=== PATIENT | male | born 1950 | race Caucasian/White ===

== ENCOUNTER 2016-11-21 11:37 | Inpatient (IN) | payer OTHER ==
[2016-11-21 11:59] VITALS: BMI 19.8
--- NOTE | 2016-11-21 15:25 | HP ---
CIWA Score - CIWA Score Nausea/Vomitin-No Nausea/No Vomiting Muscle Tremors: 3 Anxiety: 4-Mod. Anxious/Guarded Agitation: 4-Moderately Restless Paroxysmal Sweats: 1-Minimal Palms Moist Orientation: 0-Oriented Tacttile Disturbances: 3-Moderate Itch/Numb/Burn Auditory Disturbances: 0-None Visual Disturbances: 0-None Headache: 2-Mild CIWA-Ar Total Score: 17 Admission ROS BHS - HPI Chief Complaint: DETOX TX FOR ALCOHOL DEPENDENCE. Allergies/Adverse Reactions: Allergies Allergy/AdvReac Type Severity Reaction Status Date / Time No Known Allergies Allergy Verified 11/21/16 13:24 History of Present Illness: 65 Y/O MALE WITH A HX OF ALCOHOL,COCAINE AND MARIJUANA DEPENDENCE SEEKING DETOX TX. PT STATES HE WAS REFERRED TO DETOX BY [facility] FOR HARM REDUCTION IN [facility]. PCP: DR VALDIVIA AT [facility] [address] [place] [address]. Exam Limitations: No Limitations - Ebola screening Have you traveled outside of the country in the last 21 days: No Have you had contact with anyone from an Ebola affected area: No Have you been sick,other than usual withdrawal symptoms: No Do you have a fever: No - Review of Systems Constitutional: Chills, Night Sweats, Changes in sleep, Unintentional Wgt. Loss EENT: reports: Cataracts (SX BOTH EYES), Blurred Vision (WEARS GLASSES), Dental Problems (FULL UPPER/LOWER DENTURES), Other (DRY EYES) Cardiac: reports: Lightheadedness GI: reports: Constipated, Poor Fluid Intake, Indigestion : reports: Dysuria, Frequency, Other (HX ENLARGED PROSTATE-NO MED) Musculoskeletal: reports: Back Pain, Joint Pain, Muscle Pain Integumentary: reports: No Symptoms Reported Neuro: reports: Headache, Numbness, Tingling, Tremors, Unsteady Gait, Dizziness Endocrine: reports: No Symptoms Reported Hematology: reports: No Symptoms Reported Psychiatric: reports: Orientated x3, Anxious, Depressed Other Systems: Reviewed and Negative Patient History - Patient Medical History Hx Anemia: No Hx Asthma: No Hx Chronic Obstructive Pulmonary Disease (COPD): No Hx Cardiac Disorders: No Hx Hypertension: No Hx Hypercholesterolemia: Yes (ON MED-ATORVASTATIN 10 MG HS) HX Cerebrovascular Accident: Yes (X1 ONE YR AGO (SILENT STROKE BY EKG PER PT) ) Hx Seizures: No Hx Diabetes: No Hx Gastrointestinal Disorders: No (INDIGESTION) Hx Genitourinary Disorders: No 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) Hx Renal Disease (ESRD): No Hx Thyroid Disease: No Hx Human Immunodeficiency Virus (HIV): Yes (SINCE 1991-ON MEDS) Hx Hepatitis C: No Hx Depression: Yes (NO MEDS) Hx Suicide Attempt: No Hx Schizophrenia: No - Patient Surgical History Past Surgical History: Yes Hx Neurologic Surgery: No Hx Cataract Extraction: Yes (both eyes(2016)) Hx Cardiac Surgery: No Hx Lung Surgery: No Hx Breast Surgery: No Hx Breast Biopsy: No Hx Abdominal Surgery: No Hx Appendectomy: No Hx Cholecystectomy: No Hx Genitourinary Surgery: No Hx Orthopedic Surgery: Yes (lt knee(torn meniscus) Other Surgical History: lymphoma=on pancrease-chemo Anesthesia Reaction: No - PPD History Previous Implant?: Yes Documented Results: Negative w/o proof Implanted On Prior R Admission?: No PPD to be Administered?: Yes - Reproductive History Patient is a Female of Child Bearing Age (11 -55 yrs old): No (MALE) Patient : (N/A) - Smoking Cessation Smoking history: Current every day smoker Have you smoked in the past 12 months: No Aproximately how many cigarettes per day: 20 Hx Chewing Tobacco Use: No Initiated information on smoking cessation: Yes 'Breaking Loose' booklet given: 11/21/16 - Substance & Tx. History Hx Alcohol Use: Yes (BEER/VODKA) Hx Substance Use: Yes (COCAINE/MARIJUANA) Substance Use Type: Alcohol, Cocaine, Marijuana Hx Substance Use Treatment: Yes (LAST TX AT [facility] A YR AGO) - Substances Abused Alcohol Route: Oral Frequency: Daily Amount used: beer(5-16oz cans)Vodka(1 pint) Age of first use: 14 Date of Last Use: 11/21/16 Cocaine Route: Smoking Frequency: 1-3 times last 30 days Amount used: $200-300 Age of first use: 36 Date of Last Use: 11/19/16 Marijuana/Hashish Route: Smoking Frequency: 3-6 times per week Amount used: $10 Age of first use: 14 Date of Last Use: 11/18/16 Family Disease History - Family Disease History Family Disease History: Other: Father () Admission Physical Exam [facility] - Vital Signs Vital Signs: Vital Signs - 24 hr 11/21/16 11:57 Temperature 97 F L Pulse Rate 63 Respiratory 20 Rate Blood Pressure 131/73 - Physical General Appearance: Yes: Moderate Distress, Alcohol on Breath, Thin, Irritable, Anxious HEENTM: Yes: EOMI, Normocephalic, ZAHRA, Pharynx Normal Respiratory: Yes: Chest Non-Tender, Lungs Clear, Normal Breath Sounds, No Respiratory Distress Neck: Yes: No masses,lesions,Nodules, Supple, Trachea in good position Breast: Yes: Breast Exam Deferred Cardiology: Yes: Regular Rhythm, Regular Rate, S1, S2 Abdominal: Yes: Normal Bowel Sounds, Non Tender, Flat, Soft Genitourinary: Yes: Other (N/C) Back: Yes: Within Normal Limits Musculoskeletal: Yes: full range of Motion, Gait Steady Extremities: Yes: Normal Range of Motion, Non-Tender 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, Fully Oriented, Alert Integumentary: Yes: Dry, Warm, Other (VARICOSE VEINS LOWER LEGS) Lymphatic: Yes: Within Normal Limits - Diagnostic (1) Alcohol dependence with uncomplicated withdrawal Current Visit: Yes Status: Acute (2) Cocaine dependence, uncomplicated Current Visit: Yes Status: Acute (3) Cannabis dependence, uncomplicated Current Visit: Yes Status: Acute (4) HIV (human immunodeficiency virus infection) Current Visit: Yes Status: Chronic (5) Hypercholesterolemia Current Visit: Yes Status: Chronic Cleared for Admission [facility] - Detox or Rehab [facility] Level of Care: Medically Managed Detox Regimen/Protocol: Librium [facility] Breath Alcohol Content Breath Alcohol Content: 0.053 Urine Drug Screen - Results Drug Screen Negative: No Urine Drug Screen Results: THC-Marijuana, TERRENCE-Cocaine
[2016-11-21] MEDS ORDERED: IBUPROFEN 400 MG TABLET (FP) PO PRN (15:51)
[2016-11-21] MEDS ORDERED: MENTHOL/PHENOL 1 EACH UD MM PRN (15:51)
[2016-11-21] MEDS ORDERED: MAGNESIUM HYDROX 2400MG/30ML ORAL SUSPENSION 30 ML CUP PO PRN (15:51)
[2016-11-21] MEDS ORDERED: MAG HYDROX/AL HYDROX/SIMETH 30 ML UNIT-DOSE CUP PO PRN (15:51)
[2016-11-21] MEDS ORDERED: MAGNESIUM CITRATE 300 ML BOTTLE PO PRN (15:51)
[2016-11-21] MEDS ORDERED: guaiFENesin/D-METHORPHAN HB 10 ML UNIT-DOSE CUPS PO PRN (15:51)
[2016-11-21] MEDS ORDERED: hydrOXYzine PAMOATE 50 MG CAPSULE (FP) PO PRN (15:51)
[2016-11-21] MEDS ORDERED: chlordiazePOXIDE HCL 25 MG CAPSULE PO PRN (15:51)
[2016-11-21] MEDS ORDERED: ACETAMINOPHEN 325 MG TABLET (FP) PO PRN (15:51)
[2016-11-21] MEDS ORDERED: P-EPHED 60MG/TRIPROLIDI 2.5MG TABLET PO PRN (15:51)
[2016-11-21] MEDS ORDERED: NICOTINE POLACRILEX 4 MG GUM BC PRN (15:51)
[2016-11-21] MEDS ORDERED: LOPERAMIDE HCL 2 MG CAPSULE PO PRN (15:51)
[2016-11-21] MEDS ORDERED: chlordiazePOXIDE HCL 25 MG CAPSULE PO ONE (17:45)
[2016-11-21] MEDS: THIAMINE HCL 100 MG TABLET (FP) PO SCH (22:37)
[2016-11-21] MEDS: ATORVASTATIN CA 10 MG TABLET (FP) PO SCH (22:37)
[2016-11-21] MEDS: chlordiazePOXIDE HCL 25 MG CAPSULE PO SCH (22:37)
[2016-11-21 22:45] LABS: URINE APPEARANCE CLEAR; URINE BILIRUBIN NEGATIVE (NEGATIVE); URINE BLOOD NEGATIVE (NEGATIVE); URINE COLOR LTYELLOW; URINE GLUCOSE (UA) NEGATIVE (NEGATIVE); URINE KETONE NEGATIVE (NEGATIVE); URINE LEUK ESTERASE NEGATIVE (NEGATIVE); URINE NITRITE NEGATIVE (NEGATIVE); URINE PROTEIN NEGATIVE (NEGATIVE); URINE UROBILINOGEN NEGATIVE mg/dL (0.2-1.0)
[2016-11-21] MEDS: NICOTINE 21 MG/24 HOURS TOPICAL PATCH TD SCH (22:51)
[2016-11-22] MEDS: chlordiazePOXIDE HCL 25 MG CAPSULE PO SCH ×4 (05:47→22:11)
[2016-11-22] MEDS: EMTRICITAB/RILPIVIRINE/TENOFOV 1 EACH TABLET PO SCH (08:11)
[2016-11-22] MEDS: PRENATAL VITAMINS W/ FOLIC ACID TABLET (FP) PO SCH (10:15)
[2016-11-22] MEDS: ASPIRIN 81 MG CHEWABLE TABLETS PO SCH (10:15)
[2016-11-22] MEDS: ATORVASTATIN CA 10 MG TABLET (FP) PO SCH (10:15)
[2016-11-22] MEDS: NICOTINE 21 MG/24 HOURS TOPICAL PATCH TD SCH (10:16)
--- NOTE | 2016-11-22 10:19 | PN ---
S CIWA - CIWA Score Nausea/Vomitin-No Nausea/No Vomiting Muscle Tremors: 4-Moderate,w/Arms Extend Anxiety: 4-Mod. Anxious/Guarded Agitation: 4-Moderately Restless Paroxysmal Sweats: 3 Orientation: 0-Oriented Tacttile Disturbances: 0-None Auditory Disturbances: 0-None Visual Disturbances: 0-None Headache: 1-Very Mild CIWA-Ar Total Score: 16 BHS Progress Note (SOAP) Subjective: sweats shakes interrupted sleep agitation body aches Objective: 11/22/16 10:18 Vital Signs Temperature 97.1 F L 11/22/16 06:00 Pulse Rate 63 11/22/16 06:00 Respiratory Rate 18 11/22/16 06:00 Blood Pressure 112/66 11/22/16 06:00 O2 Sat by Pulse Oximetry (%) Laboratory Tests 11/21/16 22:20 Urine Color Ltyellow Urine Appearance Clear Urine pH 6.0 Urine Protein Negative Urine Glucose (UA) Negative Urine Ketones Negative Urine Blood Negative Urine Nitrite Negative Urine Bilirubin Negative Urine Urobilinogen Negative Ur Leukocyte Esterase Negative labs pending awake/alert ambulating no acute distress Assessment: 11/22/16 10:19 withdrawal sx Plan: continue detox increase fluids labs pending
[2016-11-22 12:30] LABS: ALBUMIN 3.8 g/dl (3.4-5.0); ANION GAP 6 (8-16); CALCIUM 9.5 mg/dL (8.5-10.1); CO2 29 mmol/L (21-32); CREATININE 1.2 mg/dL (0.7-1.3); GLUCOSE,RANDOM 100 mg/dL (74-106); SGOT/AST 19 U/L (15-37); SGPT/ALT 21 U/L (12-78)
[2016-11-22 12:32] LABS: ALK PHOS 58 U/L (45-117); BILIRUBIN,TOTAL 0.4 mg/dL (0.2-1.0); TOT PROT 7.9 g/dl (6.4-8.2)
[2016-11-22 12:39] LABS: MCH 30.9 pg (25.7-33.7); MCHC 33.9 g/dl (32.0-35.9); MEAN CELL VOLUME 91.2 fl (80-96); MEAN PLT VOLUME 10.4 fl (7.5-11.1); PLATELET COUNT 146 K/MM3 (134-434); RDW 14.9 % (11.9-15.9); WHITE BLOOD COUNT 6.3 K/mm3 (4.0-10.0)
--- NOTE | 2016-11-22 16:44 | CONSULT ---
[facility] Psychiatric Consult - Data Date of interview: 11/22/16 Admission source: [facility] Identifying data: First admission to [facility] for this 65 y/o male seeking detox treatment on for alcohol,cocaine (crack) and marijuana dependence.Patient is single without children,domiciled,unemployed and supported on SSI/SSD benefits. Substance Abuse History: Discussed with the patient in tis interview : Smoking Cessation. Smoking history: Current every day smoker. Have you smoked in the past 12 months: No. Aproximately how many cigarettes per day: 20. Hx Chewing Tobacco Use: No. Initiated information on smoking cessation: Yes. 'Breaking Loose' booklet given: 11/21/16. - Substance & Tx. History. Hx Alcohol Use: Yes (BEER/VODKA). Hx Substance Use: Yes (COCAINE/MARIJUANA). Substance Use Type: Alcohol, Cocaine, Marijuana. Hx Substance Use Treatment: Yes (LAST TX AT [facility] A YR AGO). - Substances Abused. Alcohol. Route: Oral. Frequency: Daily. Amount used: beer(5-16oz cans)Vodka(1 pint). Age of first use: 14. Date of Last Use: 11/21/16. Cocaine. Route: Smoking. Frequency: 1-3 times last 30 days. Amount used: $200-300. Age of first use: 36. Date of Last Use: 11/19/16. Marijuana/Hashish. Route: Smoking. Frequency: 3-6 times per week. Amount used: $10. Age of first use: 14. Date of Last Use: 08/01 Medical History: Significant for HIV infection since 1991,a history of surgery in 2016 for cataracts (bilateral),hypercholesterolemia,cerebrovascular accident (2016) without residual weakness,chemotherapy for lg cell lymphoma(spleen),and orthosurgery for torn meniscus (left knee) in 1991. Psychiatric History: No reported history of pychiatric hospitalizations.Patient sees a psychiatrist at a mental health clinic in the [place] (cannot recall name of facility).He is diagnosed with Bipolar Disorder or MDD (patient states that he cannot be sure).Mr Castro reports that he has stopped taking his prescribed medications (zoloft,abilify,paxil)." They don't work and they make me manic." Not interested in alternates offered in this session.Patient denies history of suicide attempts. Physical/Sexual Abuse/Trauma History: Patient denies. Additional Comment: Urine Drug Screen Results: THC-Marijuana, TERRENCE-Cocaine.Noted. Mental Status Exam - Mental Status Exam Alert and Oriented to: Time, Place, Person Cognitive Function: Good Patient Appearance: Unkempt, Disheveled Mood: Withdrawn, Hopeful Affect: Appropriate, Normal Range Patient Behavior: Fatigued, Cooperative Speech Pattern: Clear Voice Loudness: Normal Thought Process: Goal Oriented Thought Disorder: Not Present Hallucinations: Denies Suicidal Ideation: Denies Homicidal Ideation: Denies Insight/Judgement: Poor Sleep: Well Appetite: Good Muscle strength/Tone: Normal Gait/Station: Normal Psychiatric Findings - Problem List ([place] 1, 2,3) (1) Alcohol dependence with uncomplicated withdrawal Current Visit: Yes Status: Chronic (2) Cannabis dependence, uncomplicated Current Visit: Yes Status: Chronic (3) Cocaine dependence, uncomplicated Current Visit: Yes Status: Chronic (4) Nicotine dependence Current Visit: Yes Status: Chronic Qualifiers: Nicotine product type: cigarettes Substance use status: uncomplicated Qualified Code(s): F17.210 - Nicotine dependence, cigarettes, uncomplicated (5) Substance induced mood disorder Current Visit: Yes Status: Chronic (6) MDD (major depressive disorder) Current Visit: Yes Status: Chronic Comment: By history. (7) HIV (human immunodeficiency virus infection) Current Visit: Yes Status: Chronic (8) Hypercholesterolemia Current Visit: Yes Status: Chronic - Initial Treatment Plan Initial Treatment Plan: Psychoeducation.Detoxification is under way.No medications (patient refused to get back on antidepressant or mood stabilizers) .Made aware of risks taken by abstaining from psychotropic medications ( suicidal ideation,relapses,rehospitalizations,compromission of syndromic recovery,morbidity and deterioration of life quality).Observation.
[2016-11-22] MEDS: diphenhydrAMINE HCL 50 MG CAPSULE PO PRN (22:10)
[2016-11-22] MEDS: THIAMINE HCL 100 MG TABLET (FP) PO SCH (22:11)
[2016-11-23] MEDS: chlordiazePOXIDE HCL 25 MG CAPSULE PO SCH ×3 (06:01→17:25)
[2016-11-23] MEDS: EMTRICITAB/RILPIVIRINE/TENOFOV 1 EACH TABLET PO SCH (09:25)
--- NOTE | 2016-11-23 09:59 | PN ---
S CIWA - CIWA Score Nausea/Vomitin-No Nausea/No Vomiting Muscle Tremors: 3 Anxiety: 3 Agitation: 3 Paroxysmal Sweats: 3 Orientation: 0-Oriented Tacttile Disturbances: 0-None Auditory Disturbances: 0-None Visual Disturbances: 0-None Headache: 0-None Present CIWA-Ar Total Score: 12 S Progress Note (SOAP) Subjective: body aches sweats interrupted sleep Objective: 11/23/16 09:58 Vital Signs Temperature 96.3 F L 11/23/16 06:29 Pulse Rate 57 L 11/23/16 06:29 Respiratory Rate 16 11/23/16 06:29 Blood Pressure 120/70 11/23/16 06:29 O2 Sat by Pulse Oximetry (%) Laboratory Tests 11/21/16 11/22/16 11/22/16 22:20 06:15 06:15 WBC 6.3 RBC 5.12 Hgb 15.8 Hct 46.7 MCV 91.2 MCH 30.9 MCHC 33.9 RDW 14.9 Plt Count 146 MPV 10.4 Sodium 140 Potassium 4.4 Chloride 105 Carbon Dioxide 29 Anion Gap 6 L BUN 11 Creatinine 1.2 Creat Clearance w eGFR > 60 Random Glucose 100 Calcium 9.5 Total Bilirubin 0.4 AST 19 ALT 21 Alkaline Phosphatase 58 Total Protein 7.9 Albumin 3.8 Urine Color Ltyellow Urine Appearance Clear Urine pH 6.0 Ur Specific [place] 1.010 Urine Protein Negative Urine Glucose (UA) Negative Urine Ketones Negative Urine Blood Negative Urine Nitrite Negative Urine Bilirubin Negative Urine Urobilinogen Negative Ur Leukocyte Esterase Negative awake/alert ambulating no acute distress Assessment: 11/23/16 09:59 withdrawal sx Plan: continue detox increase fluids
[2016-11-23] MEDS: NICOTINE 21 MG/24 HOURS TOPICAL PATCH TD SCH (10:18)
[2016-11-23] MEDS: ASPIRIN 81 MG CHEWABLE TABLETS PO SCH (10:18)
[2016-11-23] MEDS: ATORVASTATIN CA 10 MG TABLET (FP) PO SCH (10:18)
[2016-11-23] MEDS: PRENATAL VITAMINS W/ FOLIC ACID TABLET (FP) PO SCH (10:18)
--- NOTE | 2016-11-23 14:52 | EKG ---
Test Reason : Blood Pressure : / mmHG Vent. Rate : 068 BPM Atrial Rate : 068 BPM P-R Int : 160 ms QRS Dur : 076 ms QT Int : 412 ms P-R-T Axes : 074 029 066 degrees QTc Int : 438 ms NORMAL SINUS RHYTHM NORMAL ECG NO PREVIOUS ECGS AVAILABLE Confirmed by KARLI HERNANDEZ MD ([id number]) on 11/23/2016 2:51:24 PM Referred By: Confirmed By:KARLI HERNANDEZ MD
[2016-11-23] MEDS: chlordiazePOXIDE 5 MG CAPSULE PO SCH (22:18)
[2016-11-23] MEDS: THIAMINE HCL 100 MG TABLET (FP) PO SCH (22:18)
[2016-11-24] MEDS: chlordiazePOXIDE 5 MG CAPSULE PO SCH ×3 (05:26→16:57)
[2016-11-24] MEDS: EMTRICITAB/RILPIVIRINE/TENOFOV 1 EACH TABLET PO SCH (07:59)
--- NOTE | 2016-11-24 09:06 | DS ---
[facility] Detox Discharge Summary Admission Date: 11/21/16 Discharge Date: 11/24/16 - History Present History: Alcohol Dependence, Cannabis Dependence, Cocaine Dependence - Physical Exam Results Vital Signs: Vital Signs Temperature 97.1 F L 11/24/16 06:19 Pulse Rate 69 11/24/16 06:19 Respiratory Rate 18 11/24/16 06:19 Blood Pressure 118/62 11/24/16 06:19 O2 Sat by Pulse Oximetry (%) - Treatment Hospital Course: Detox Protocol Followed, Detoxed Safely, Responded well, Discharged Condition Good, Rehab Referral Accepted - Medication Discharge Medications: Ambulatory Orders Aspirin [ASA -] 81 mg PO DAILY 11/21/16 Atorvastatin Ca [Lipitor] 10 mg PO DAILY 11/21/16 Atorvastatin Ca [Lipitor] 10 mg PO HS 11/21/16 Emtricitab/Rilpivirine/Tenofov [Complera -] 1 each PO DAILY 11/21/16 Hydroxyzine Pamoate [Vistaril -] 50 mg PO DAILY 11/21/16 Hydroxyzine Pamoate [Vistaril -] 100 mg PO HS 11/21/16 - Diagnosis (1) Alcohol dependence with uncomplicated withdrawal Current Visit: Yes Status: Chronic (2) Cannabis dependence, uncomplicated Current Visit: Yes Status: Chronic (3) Cocaine dependence, uncomplicated Current Visit: Yes Status: Chronic (4) Nicotine dependence Current Visit: Yes Status: Chronic Qualifiers: Nicotine product type: cigarettes Substance use status: uncomplicated Qualified Code(s): F17.210 - Nicotine dependence, cigarettes, uncomplicated (5) Substance induced mood disorder Current Visit: Yes Status: Chronic (6) HIV (human immunodeficiency virus infection) Current Visit: Yes Status: Chronic (7) Hypercholesterolemia Current Visit: Yes Status: Chronic (8) MDD (major depressive disorder) Current Visit: Yes Status: Chronic - AMA Did Patient Leave Against Medical Advice: No
[2016-11-24] MEDS: ASPIRIN 81 MG CHEWABLE TABLETS PO SCH (10:18)
[2016-11-24] MEDS: ATORVASTATIN CA 10 MG TABLET (FP) PO SCH (10:18)
[2016-11-24] MEDS: PRENATAL VITAMINS W/ FOLIC ACID TABLET (FP) PO SCH (10:18)
[2016-11-24] MEDS: NICOTINE 21 MG/24 HOURS TOPICAL PATCH TD SCH (10:18)
--- NOTE | 2016-11-24 10:45 | PN ---
BHS Progress Note (SOAP) Subjective: feeling better agitation Objective: 11/24/16 10:45 Vital Signs Temperature 97.2 F L 11/24/16 10:25 Pulse Rate 63 11/24/16 10:25 Respiratory Rate 18 11/24/16 10:25 Blood Pressure 125/66 11/24/16 10:25 O2 Sat by Pulse Oximetry (%) awake/alert ambulating no acute distress Assessment: 11/24/16 10:45 mild withdrawal sx Plan: continue detox d/c in am
[2016-11-24] MEDS: diphenhydrAMINE HCL 50 MG CAPSULE PO PRN (22:23)
[2016-11-24] MEDS: chlordiazePOXIDE HCL 10 MG CAPSULE PO SCH (22:23)
[2016-11-24] MEDS: THIAMINE HCL 100 MG TABLET (FP) PO SCH (22:23)
[2016-11-25] MEDS: chlordiazePOXIDE HCL 10 MG CAPSULE PO SCH (05:16)
[2016-11-25 06:31] VITALS: BP 134/76; PULSE 60; TEMP 97.5
--- NOTE | 2016-11-25 08:29 | DS ---
[facility] Detox Discharge Summary Admission Date: 11/21/16 Discharge Date: 11/25/16 - History Present History: Alcohol Dependence, Cannabis Dependence, Cocaine Dependence - Physical Exam Results Vital Signs: Vital Signs Temperature 97.5 F L 11/25/16 06:31 Pulse Rate 60 11/25/16 06:31 Respiratory Rate 16 11/25/16 06:31 Blood Pressure 134/76 11/25/16 06:31 O2 Sat by Pulse Oximetry (%) - Treatment Hospital Course: Detox Protocol Followed, Detoxed Safely, Responded well, Discharged Condition Good, Rehab Referral Accepted - Medication Discharge Medications: Ambulatory Orders Aspirin [ASA -] 81 mg PO DAILY 11/21/16 Atorvastatin Ca [Lipitor] 10 mg PO DAILY 11/21/16 Atorvastatin Ca [Lipitor] 10 mg PO HS 11/21/16 Emtricitab/Rilpivirine/Tenofov [Complera -] 1 each PO DAILY 11/21/16 Hydroxyzine Pamoate [Vistaril -] 50 mg PO DAILY 11/21/16 Hydroxyzine Pamoate [Vistaril -] 100 mg PO HS 11/21/16 - Diagnosis (1) Alcohol dependence with uncomplicated withdrawal Current Visit: Yes Status: Chronic (2) Cannabis dependence, uncomplicated Current Visit: Yes Status: Chronic (3) Cocaine dependence, uncomplicated Current Visit: Yes Status: Chronic (4) Nicotine dependence Current Visit: Yes Status: Chronic Qualifiers: Nicotine product type: cigarettes Substance use status: uncomplicated Qualified Code(s): F17.210 - Nicotine dependence, cigarettes, uncomplicated (5) Substance induced mood disorder Current Visit: Yes Status: Chronic (6) HIV (human immunodeficiency virus infection) Current Visit: Yes Status: Chronic (7) Hypercholesterolemia Current Visit: Yes Status: Chronic (8) MDD (major depressive disorder) Current Visit: Yes Status: Chronic - AMA Did Patient Leave Against Medical Advice: No
== END 2016-11-25 09:08 | disposition home or self-care (01) | DRG 897 ==
LOC: YASAS 11:37 → Y6N 15:01
PROVIDERS: ADMIT Internal Medicine; ATTEND Internal Medicine
PROC: HZ2ZZZZ Detoxification Services for Substance Abuse Treatment (ICD-10-PCS; principal; 2016-11-21)
DX: F10.230 Alcohol dependence with withdrawal, uncomplicated (principal); F14.20 Cocaine dependence, uncomplicated; F33.9 Major depressive disorder, recurrent, unspecified; F12.20 Cannabis dependence, uncomplicated; F17.210 Nicotine dependence, cigarettes, uncomplicated; F19.24 Other psychoactive substance dependence with psychoactive substance-induced mood disorder; Z21 Asymptomatic human immunodeficiency virus [HIV] infection status; E78.00 Pure hypercholesterolemia, unspecified; Z85.72 Personal history of non-Hodgkin lymphomas; K30 Functional dyspepsia; Z86.73 Personal history of transient ischemic attack (TIA), and cerebral infarction without residual deficits; Z79.82 Long term (current) use of aspirin; Z87.438 Personal history of other diseases of male genital organs; Z92.21 Personal history of antineoplastic chemotherapy; Z98.41 Cataract extraction status, right eye; Z98.42 Cataract extraction status, left eye
CPT/HCPCS: 36415; 80053; 81003; 85027; 86593; 93005; 93010

== ENCOUNTER 2019-05-23 12:31 | Inpatient (IN) | payer OTHER ==
--- NOTE | 2019-05-23 14:16 | HP ---
CIWA Score Nausea/Vomitin-Mild Nausea/No Vomiting Muscle Tremors: 3 Anxiety: 0-No Anxiety, at Ease Agitation: 0-Normal Activity Paroxysmal Sweats: 4-Forehead w/Sweat Beads Orientation: 2-Disoriented Date<2 days Tacttile Disturbances: 0-None Auditory Disturbances: 0-None Visual Disturbances: 3-Moderate Sensitivity Headache: 0-None Present CIWA-Ar Total Score: 13 - Admission Criteria OASAS Guidelines: Admission for Medically Managed Detox: Requires at least one of the followin. CIWA greater than 12 2. Seizures within the past 24 hours 3. Delirium tremens within the past 24 hours 4. Hallucinations within the past 24 hours 5. Acute intervention needed for co occurring medical disorder 6. Acute intervention needed for co occurring psychiatric disorder 7. Severe withdrawal that cannot be handled at a lower level of care (continued vomiting, continued diarrhea, abnormal vital signs) requiring intravenous medication and/or fluids 8. Patient presents the following: CIWA greater than 12 Admission Criteria Met: Admission criteria met Admitting History and Physical - Admission Chief Complaint: Mr. Castro presents to [facility] requesting detox from alcohol and crack. History of Present Illness: Mr. Castro presents to [facility] requesting detox from alcohol and crack. He is a 68 yo gentleman with a PMH of HIV and polysubstance use including alcohol, crack/cocaine and THC. His last detox in [facility] was in November of 2016. PMH: HIV, HL. 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 First drink at the age of 15y. 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, seizure one year ago Crack/cocaine: $50 to 100 per day, 2-5 dime bags per day, last use last night, first use age 36 y THC: 3-4 blunts per day, last use yesterday, first use age 15 y Nicotine: 1ppd, first use age 15y, last smoke this am - Smoking History Smoking history: Current every day smoker Have you smoked in the past 12 months: No Aproximately how many cigarettes per day: 20 - Alcohol/Substance Use Hx Alcohol Use: Yes (BEER/VODKA) Admission [facility] Allergies/Adverse Reactions: Allergies Allergy/AdvReac Type Severity Reaction Status Date / Time No Known Allergies Allergy Verified 11/21/16 13:24 Exam Limitations: No Limitations - Ebola screening Have you traveled outside of the country in the last 21 days: No Have you had contact with anyone from an Ebola affected area: No Have you been sick,other than usual withdrawal symptoms: No Do you have a fever: No - Review of Systems Constitutional: Other (slender, difficulty maintaining weight) EENT: reports: Blurred Vision Respiratory: reports: No Symptoms reported Cardiac: reports: No Symptoms Reported GI: reports: No Symptoms Reported : reports: No Symptoms Reported Musculoskeletal: reports: Back Pain Neuro: reports: No Symptoms reported Endocrine: reports: No Symptoms Reported Hematology: reports: No Symptoms Reported Psychiatric: reports: Depressed Patient History - Patient Medical History Hx Anemia: No Hx Asthma: No Hx Chronic Obstructive Pulmonary Disease (COPD): No Hx Cardiac Disorders: No Hx Hypertension: No Hx Hypercholesterolemia: Yes (ON MED-ATORVASTATIN 10 MG HS) HX Cerebrovascular Accident: Yes (X1 ONE YR AGO (SILENT STROKE BY EKG PER PT) ) Hx Seizures: No Hx Diabetes: No Hx Gastrointestinal Disorders: No (INDIGESTION) Hx Genitourinary Disorders: No 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) Hx Renal Disease (ESRD): No Hx Thyroid Disease: No Hx Human Immunodeficiency Virus (HIV): Yes (SINCE 1991-ON MEDS, noncompliant Bicktarvy) Hx Hepatitis C: No Hx Depression: Yes (NO MEDS) Hx Suicide Attempt: No Hx Schizophrenia: No - Patient Surgical History Past Surgical History: Yes Hx Neurologic Surgery: No Hx Cataract Extraction: Yes (both eyes(2016)) Hx Cardiac Surgery: No Hx Lung Surgery: No Hx Breast Surgery: No Hx Breast Biopsy: No Hx Abdominal Surgery: No Hx Appendectomy: No Hx Cholecystectomy: No Hx Genitourinary Surgery: No Hx Section: No Hx Orthopedic Surgery: Yes (lt knee(torn meniscus) Other Surgical History: lymphoma=on pancrease-chemo Anesthesia Reaction: No - PPD History Date: 11/23/16 - Smoking Cessation Smoking history: Current every day smoker Have you smoked in the past 12 months: No Aproximately how many cigarettes per day: 20 Hx Chewing Tobacco Use: No Initiated information on smoking cessation: Yes 'Breaking Loose' booklet given: 05/23/19 - Substances abused Alcohol Substance route: Oral Frequency: Daily Amount used: 6pk beer Age of first use: 15 Date of last use: 05/23/19 Crack Substance route: Smoking Frequency: Daily Amount used: $20-50 Age of first use: 36 Date of last use: 05/22/19 Admission Physical Exam [facility] - Physical General Appearance: Yes: Within Normal Limits, Thin HEENTM: Yes: Hearing grossly Normal, Normocephalic Respiratory: Yes: Lungs Clear, Normal Breath Sounds Neck: Yes: Within Normal Limits Breast: Yes: Breast Exam Deferred Cardiology: Yes: Regular Rate, S1, S2 Abdominal: Yes: Surgical Scar (mid abdominal remote well healed surgical scar) Back: Yes: Normal Inspection Musculoskeletal: Yes: Within Normal Limits Extremities: Yes: Other (spider veins in both legs) Neurological: Yes: Alert, Normal Response Integumentary: Yes: Within Normal Limits - Diagnostic (1) Alcohol dependence with uncomplicated withdrawal Current Visit: Yes Status: Acute (2) Cocaine dependence, uncomplicated Current Visit: Yes Status: Chronic (3) HIV (human immunodeficiency virus infection) Current Visit: Yes Status: Chronic Cleared for Admission [facility] - Detox or Rehab [facility] Level of Care: Medically Managed Breathalyzer - Breathalyzer Breathalyzer: 0.021 Urine Drug Screen - Test Device Lot number: [id number] Expiration date: 03/16/21 - Control Is test valid?: Yes - Results Drug screen NEGATIVE: No Urine drug screen results: THC-Marijuana, TERRENCE-Cocaine, MTD-Methadone Inpatient Rehab Admission - Rehab Decision to Admit Inpatient rehab admission?: No
[2019-05-23] MEDS ORDERED: MELATONIN 5 MG TABLETS PO PRN (14:21)
[2019-05-23] MEDS ORDERED: MAGNESIUM HYDROX 2400MG/30ML ORAL SUSPENSION 30 ML CUP PO PRN (14:21)
[2019-05-23] MEDS ORDERED: chlordiazePOXIDE HCL 25 MG CAPSULE PO PRN (14:21)
[2019-05-23] MEDS ORDERED: METHOCARBAMOL 500 MG TABLET PO PRN (14:21)
[2019-05-23] MEDS ORDERED: MENTHOL/PHENOL 1 EACH UD MM PRN (14:21)
[2019-05-23] MEDS ORDERED: MAG HYDROX/AL HYDROX/SIMETH 30 ML UNIT-DOSE CUP PO PRN (14:21)
[2019-05-23] MEDS ORDERED: IBUPROFEN 400 MG TABLET (FP) PO PRN (14:21)
[2019-05-23] MEDS ORDERED: ACETAMINOPHEN 325 MG TABLET (FP) PO PRN ×2 (14:21)
[2019-05-23] MEDS ORDERED: hydrOXYzine PAMOATE 25 MG CAPSULE (FP) PO PRN (14:21)
[2019-05-23] MEDS ORDERED: MAGNESIUM CITRATE 300 ML BOTTLE PO PRN (14:21)
[2019-05-23] MEDS ORDERED: BISMUTH SUBSALICYLATE 262 MG/15 ML BTL PO PRN (14:21)
[2019-05-23 14:35] VITALS: BMI 17.9
[2019-05-23] MEDS: ASPIRIN 81 MG CHEWABLE TABLETS PO SCH (15:49)
[2019-05-23] MEDS: NICOTINE 21 MG/24 HOURS TOPICAL PATCH TD SCH (15:50)
[2019-05-23 17:08] LABS: HEMATOCRIT 44.2 % (35.4-49); HEMOGLOBIN 14.7 GM/dL (11.7-16.9); MCH 29.9 pg (25.7-33.7); MCHC 33.3 g/dl (32.0-35.9); MEAN CELL VOLUME 89.7 fl (80-96); PLATELET COUNT 167 K/MM3 (134-434); RBC 4.93 M/mm3 (4.00-5.60); RDW 14.5 % (11.9-15.9); WHITE BLOOD COUNT 3.9 K/mm3 (4.0-10.0)
[2019-05-23 17:22] LABS: ALBUMIN 3.3 g/dl (3.4-5.0); BILIRUBIN,TOTAL 0.6 mg/dL (0.2-1); CALCIUM 9.3 mg/dL (8.5-10.1); CREATININE 1.3 mg/dL (0.55-1.3); POTASSIUM 3.8 mmol/L (3.5-5.1); TOT PROT 7.7 g/dl (6.4-8.2)
[2019-05-23] MEDS: chlordiazePOXIDE HCL 25 MG CAPSULE PO SCH ×2 (18:10→22:10)
[2019-05-23] MEDS: EMTRICITAB/RILPIVIRINE/TENOFOV 1 EACH TABLET PO SCH (18:10)
[2019-05-23] MEDS: ATORVASTATIN CA 10 MG TABLET (FP) PO SCH (22:10)
[2019-05-23] MEDS: THIAMINE HCL 100 MG TABLET (FP) PO SCH (22:10)
[2019-05-24] MEDS: chlordiazePOXIDE HCL 25 MG CAPSULE PO SCH ×4 (05:16→22:28)
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
--- NOTE | 2019-05-24 10:18 | PN ---
S CIWA - CIWA Score Nausea/Vomitin-Mild Nausea/No Vomiting Muscle Tremors: 2 Anxiety: 2 Agitation: 2 Paroxysmal Sweats: No Perspiration Orientation: 0-Oriented Tacttile Disturbances: 1-Very Mild Itch/Numbness Auditory Disturbances: 0-None Visual Disturbances: 0-None Headache: 1-Very Mild CIWA-Ar Total Score: 9 S Progress Note (SOAP) Subjective: alert,irritable,anxious,interrupted sleep,tremor,pain in the body Objective: 05/24/19 10:15 Vital Signs Temperature 98.1 F 05/24/19 08:54 Pulse Rate 69 05/24/19 08:54 Respiratory Rate 18 05/24/19 08:54 Blood Pressure 150/87 05/24/19 08:54 O2 Sat by Pulse Oximetry (%) Laboratory Last Values WBC 3.9 K/mm3 (4.0-10.0) L 05/23/19 14:50 RBC 4.93 M/mm3 (4.00-5.60) 05/23/19 14:50 Hgb 14.7 GM/dL (11.7-16.9) 05/23/19 14:50 Hct 44.2 % (35.4-49) 05/23/19 14:50 MCV 89.7 fl (80-96) 05/23/19 14:50 MCH 29.9 pg (25.7-33.7) 05/23/19 14:50 MCHC 33.3 g/dl (32.0-35.9) 05/23/19 14:50 RDW 14.5 % (11.9-15.9) 05/23/19 14:50 Plt Count 167 K/MM3 (134-434) 05/23/19 14:50 MPV 9.0 fl (7.5-11.1) D 05/23/19 14:50 Sodium 139 mmol/L (136-145) 05/23/19 14:50 Potassium 3.8 mmol/L (3.5-5.1) 05/23/19 14:50 Chloride 106 mmol/L (98-107) 05/23/19 14:50 Carbon Dioxide 29 mmol/L (21-32) 05/23/19 14:50 Anion Gap 4 MMOL/L (8-16) L 05/23/19 14:50 BUN 18.0 mg/dL (7-18) 05/23/19 14:50 Creatinine 1.3 mg/dL (0.55-1.3) 05/23/19 14:50 Est GFR (CKD-EPI)AfAm 65.44 05/23/19 14:50 Est GFR (CKD-EPI)NonAf 56.46 05/23/19 14:50 Random Glucose 64 mg/dL (74-106) L 05/23/19 14:50 Calcium 9.3 mg/dL (8.5-10.1) 05/23/19 14:50 Total Bilirubin 0.6 mg/dL (0.2-1) 05/23/19 14:50 AST 24 U/L (15-37) 05/23/19 14:50 ALT 21 U/L (13-61) 05/23/19 14:50 Alkaline Phosphatase 58 U/L (45-117) 05/23/19 14:50 Total Protein 7.7 g/dl (6.4-8.2) 05/23/19 14:50 Albumin 3.3 g/dl (3.4-5.0) L 05/23/19 14:50 RPR Titer Nonreactive (NONREACTIVE) 05/23/19 14:50 Assessment: 05/24/19 10:16 withdrawal symptom Plan: continue detox librium regimen,wbc 3,900,initial glucose is 64,ensure plus 120 mls po bid,bgm x one
[2019-05-24] MEDS: NICOTINE 21 MG/24 HOURS TOPICAL PATCH TD SCH (10:38)
[2019-05-24] MEDS: EMTRICITAB/RILPIVIRINE/TENOFOV 1 EACH TABLET PO SCH (10:38)
[2019-05-24] MEDS: ASPIRIN 81 MG CHEWABLE TABLETS PO SCH (10:38)
[2019-05-24] MEDS: PRENATAL VITAMINS W/ FOLIC ACID TABLET (FP) PO SCH (10:39)
[2019-05-24] MEDS: ATORVASTATIN CA 10 MG TABLET (FP) PO SCH (22:28)
[2019-05-24] MEDS: THIAMINE HCL 100 MG TABLET (FP) PO SCH (22:28)
[2019-05-25] MEDS: chlordiazePOXIDE HCL 25 MG CAPSULE PO SCH ×4 (05:31→22:10)
[2019-05-25] MEDS: NICOTINE 21 MG/24 HOURS TOPICAL PATCH TD SCH (10:50)
[2019-05-25] MEDS: PRENATAL VITAMINS W/ FOLIC ACID TABLET (FP) PO SCH (10:50)
[2019-05-25] MEDS: ASPIRIN 81 MG CHEWABLE TABLETS PO SCH (10:50)
[2019-05-25] MEDS: EMTRICITAB/RILPIVIRINE/TENOFOV 1 EACH TABLET PO SCH (10:50)
--- NOTE | 2019-05-25 10:53 | PN ---
S CIWA - CIWA Score Nausea/Vomitin Muscle Tremors: 2 Anxiety: 1-Mildly Anxious Agitation: 1-Slight > Activity Paroxysmal Sweats: 1-Minimal Palms Moist Orientation: 0-Oriented Tacttile Disturbances: 1-Very Mild Itch/Numbness Auditory Disturbances: 0-None Visual Disturbances: 0-None Headache: 1-Very Mild CIWA-Ar Total Score: 9 BHS Progress Note (SOAP) Subjective: Abdominal cramps, back pain and interrupted sleep Objective: 05/25/19 10:52 Withdrawal sx Vital Signs - 8 hr 05/25/19 05/25/19 03:35 06:22 Temperature 96.8 F L Pulse Rate 53 L Respiratory 18 16 Rate Blood Pressure 138/81 VSS Laboratory Last Values WBC 3.9 K/mm3 (4.0-10.0) L 05/23/19 14:50 RBC 4.93 M/mm3 (4.00-5.60) 05/23/19 14:50 Hgb 14.7 GM/dL (11.7-16.9) 05/23/19 14:50 Hct 44.2 % (35.4-49) 05/23/19 14:50 MCV 89.7 fl (80-96) 05/23/19 14:50 MCH 29.9 pg (25.7-33.7) 05/23/19 14:50 MCHC 33.3 g/dl (32.0-35.9) 05/23/19 14:50 RDW 14.5 % (11.9-15.9) 05/23/19 14:50 Plt Count 167 K/MM3 (134-434) 05/23/19 14:50 MPV 9.0 fl (7.5-11.1) D 05/23/19 14:50 Sodium 139 mmol/L (136-145) 05/23/19 14:50 Potassium 3.8 mmol/L (3.5-5.1) 05/23/19 14:50 Chloride 106 mmol/L (98-107) 05/23/19 14:50 Carbon Dioxide 29 mmol/L (21-32) 05/23/19 14:50 Anion Gap 4 MMOL/L (8-16) L 05/23/19 14:50 BUN 18.0 mg/dL (7-18) 05/23/19 14:50 Creatinine 1.3 mg/dL (0.55-1.3) 05/23/19 14:50 Est GFR (CKD-EPI)AfAm 65.44 05/23/19 14:50 Est GFR (CKD-EPI)NonAf 56.46 05/23/19 14:50 POC Glucometer 105 UNITS (80-120) 05/24/19 10:42 Random Glucose 64 mg/dL (74-106) L 05/23/19 14:50 Calcium 9.3 mg/dL (8.5-10.1) 05/23/19 14:50 Total Bilirubin 0.6 mg/dL (0.2-1) 05/23/19 14:50 AST 24 U/L (15-37) 05/23/19 14:50 ALT 21 U/L (13-61) 05/23/19 14:50 Alkaline Phosphatase 58 U/L (45-117) 05/23/19 14:50 Total Protein 7.7 g/dl (6.4-8.2) 05/23/19 14:50 Albumin 3.3 g/dl (3.4-5.0) L 05/23/19 14:50 RPR Titer Nonreactive (NONREACTIVE) 05/23/19 14:50 Labs noted, no panic values No acute distress Assessment: 05/25/19 10:52 Withdrawal sx Plan: Continue detox Increase oral fluid intake
[2019-05-25] MEDS: ATORVASTATIN CA 10 MG TABLET (FP) PO SCH (22:10)
[2019-05-25] MEDS: THIAMINE HCL 100 MG TABLET (FP) PO SCH (22:10)
[2019-05-26] MEDS ORDERED: chlordiazePOXIDE HCL 10 MG CAPSULE PO PRN
[2019-05-26] MEDS: chlordiazePOXIDE HCL 10 MG CAPSULE PO SCH ×4 (05:08→23:45)
[2019-05-26] MEDS: ASPIRIN 81 MG CHEWABLE TABLETS PO SCH (10:41)
[2019-05-26] MEDS: PRENATAL VITAMINS W/ FOLIC ACID TABLET (FP) PO SCH (10:41)
[2019-05-26] MEDS: EMTRICITAB/RILPIVIRINE/TENOFOV 1 EACH TABLET PO SCH (10:42)
[2019-05-26] MEDS: NICOTINE 21 MG/24 HOURS TOPICAL PATCH TD SCH (10:43)
--- NOTE | 2019-05-26 12:07 | PN ---
S CIWA - CIWA Score Nausea/Vomitin-No Nausea/No Vomiting Muscle Tremors: 2 Anxiety: 2 Agitation: 1-Slight > Activity Paroxysmal Sweats: 2 Orientation: 0-Oriented Tacttile Disturbances: 0-None Auditory Disturbances: 0-None Visual Disturbances: 0-None Headache: 0-None Present CIWA-Ar Total Score: 7 BHS Progress Note (SOAP) Subjective: Feels ok, medication working ok Objective: 05/26/19 12:05 Last Vital Signs Temp Pulse Resp BP Pulse Ox 97.9 F 62 18 128/78 05/26/19 09:02 05/26/19 09:02 05/26/19 09:02 05/26/19 09:02 Laboratory Tests 05/23/19 05/23/19 05/23/19 14:50 14:50 14:50 WBC 3.9 L RBC 4.93 Hgb 14.7 Hct 44.2 MCV 89.7 MCH 29.9 MCHC 33.3 RDW 14.5 Plt Count 167 MPV 9.0 D Sodium 139 Potassium 3.8 Chloride 106 Carbon Dioxide 29 Anion Gap 4 L BUN 18.0 Creatinine 1.3 Est GFR (CKD-EPI)AfAm 65.44 Est GFR (CKD-EPI)NonAf 56.46 POC Glucometer Random Glucose 64 L Calcium 9.3 Total Bilirubin 0.6 AST 24 ALT 21 Alkaline Phosphatase 58 Total Protein 7.7 Albumin 3.3 L RPR Titer Nonreactive 05/24/19 10:42 WBC RBC Hgb Hct MCV MCH MCHC RDW Plt Count MPV Sodium Potassium Chloride Carbon Dioxide Anion Gap BUN Creatinine Est GFR (CKD-EPI)AfAm Est GFR (CKD-EPI)NonAf POC Glucometer 105 Random Glucose Calcium Total Bilirubin AST ALT Alkaline Phosphatase Total Protein Albumin RPR Titer Labs reviewed Assessment: 05/26/19 12:06 Withdrawal sxs Plan: Continue detox Encouraged PO water intake
[2019-05-26] MEDS: ATORVASTATIN CA 10 MG TABLET (FP) PO SCH (22:04)
[2019-05-26] MEDS: THIAMINE HCL 100 MG TABLET (FP) PO SCH (22:05)
[2019-05-27] MEDS ORDERED: chlordiazePOXIDE HCL 10 MG CAPSULE PO SCH (05:00)
--- NOTE | 2019-05-27 08:52 | DS ---
[facility] Detox Discharge Summary Admission Date: 05/23/19 Discharge Date: 05/27/19 - History Present History: Alcohol Dependence, Cannabis Dependence, Cocaine Dependence - Physical Exam Results Vital Signs: Vital Signs Temperature 98.1 F 05/27/19 07:56 Pulse Rate 66 05/27/19 07:56 Respiratory Rate 16 05/27/19 07:56 Blood Pressure 100/54 L 05/27/19 07:56 O2 Sat by Pulse Oximetry (%) Pertinent Admission Physical Exam Findings: Vital Signs Temperature 98.1 F 05/27/19 07:56 Pulse Rate 66 05/27/19 07:56 Respiratory Rate 16 05/27/19 07:56 Blood Pressure 100/54 L 05/27/19 07:56 O2 Sat by Pulse Oximetry (%) Laboratory Tests 05/23/19 05/23/19 05/23/19 14:50 14:50 14:50 WBC 3.9 L RBC 4.93 Hgb 14.7 Hct 44.2 MCV 89.7 MCH 29.9 MCHC 33.3 RDW 14.5 Plt Count 167 MPV 9.0 D Sodium 139 Potassium 3.8 Chloride 106 Carbon Dioxide 29 Anion Gap 4 L BUN 18.0 Creatinine 1.3 Est GFR (CKD-EPI)AfAm 65.44 Est GFR (CKD-EPI)NonAf 56.46 POC Glucometer Random Glucose 64 L Calcium 9.3 Total Bilirubin 0.6 AST 24 ALT 21 Alkaline Phosphatase 58 Total Protein 7.7 Albumin 3.3 L RPR Titer Nonreactive 05/24/19 10:42 WBC RBC Hgb Hct MCV MCH MCHC RDW Plt Count MPV Sodium Potassium Chloride Carbon Dioxide Anion Gap BUN Creatinine Est GFR (CKD-EPI)AfAm Est GFR (CKD-EPI)NonAf POC Glucometer 105 Random Glucose Calcium Total Bilirubin AST ALT Alkaline Phosphatase Total Protein Albumin RPR Titer aaox3 ambulating lungs CTA no acute distress d/c took @30-35min - Treatment Hospital Course: Detox Protocol Followed, Detoxed Safely, Responded well, Discharged Condition Good, Rehab Referral Accepted Patient has Accepted a Rehab Referral to: declined; going home - Diagnosis (1) Alcohol dependence with uncomplicated withdrawal Current Visit: Yes Status: Chronic (2) Cocaine dependence, uncomplicated Current Visit: Yes Status: Chronic (3) Substance-induced sleep disorder Current Visit: Yes Status: Acute (4) Bipolar disorder Current Visit: Yes Status: Chronic (5) HIV (human immunodeficiency virus infection) Current Visit: Yes Status: Chronic Qualifiers: HIV symptom status: unspecified Qualified Code(s): B20 - Human immunodeficiency virus [HIV] disease (6) CVA (cerebral vascular accident) Current Visit: Yes Status: Resolved Qualifiers: CVA mechanism: unspecified Qualified Code(s): I63.9 - Cerebral infarction, unspecified (7) MDD (major depressive disorder) Current Visit: Yes Status: Ruled-out Qualifiers: Major depression episode severity: unspecified (8) Cannabis dependence, uncomplicated Current Visit: No Status: Acute (9) Substance induced mood disorder Current Visit: No Status: Acute (10) Hypercholesterolemia Current Visit: Yes Status: Chronic (11) Nicotine dependence Current Visit: Yes Status: Chronic Qualifiers: Nicotine product type: cigarettes Substance use status: uncomplicated Qualified Code(s): F17.210 - Nicotine dependence, cigarettes, uncomplicated - AMA Did Patient Leave Against Medical Advice: No
[2019-05-27 09:52] VITALS: BP 128/61; PULSE 78; TEMP 97.7
[2019-05-28] MEDS ORDERED: chlordiazePOXIDE HCL 10 MG CAPSULE PO ONE (05:00)
== END 2019-05-27 09:35 | disposition home or self-care (01) | DRG 897 ==
LOC: YASAS 12:31 → Y6N 14:48
PROVIDERS: ADMIT Allergy & Immunology; ATTEND Allergy & Immunology
PROC: HZ2ZZZZ Detoxification Services for Substance Abuse Treatment (ICD-10-PCS; principal; 2019-05-23)
DX: F10.230 Alcohol dependence with withdrawal, uncomplicated (principal); F14.20 Cocaine dependence, uncomplicated; F19.282 Other psychoactive substance dependence with psychoactive substance-induced sleep disorder; F12.20 Cannabis dependence, uncomplicated; F17.210 Nicotine dependence, cigarettes, uncomplicated; F31.9 Bipolar disorder, unspecified; F43.10 Post-traumatic stress disorder, unspecified; F19.24 Other psychoactive substance dependence with psychoactive substance-induced mood disorder; Z21 Asymptomatic human immunodeficiency virus [HIV] infection status; E78.00 Pure hypercholesterolemia, unspecified; Z86.73 Personal history of transient ischemic attack (TIA), and cerebral infarction without residual deficits; Z85.72 Personal history of non-Hodgkin lymphomas
CPT/HCPCS: 36415; 80053; 82962; 85027; 86593

== ENCOUNTER 2019-11-19 09:43 | Inpatient (IN) | payer OTHER ==
--- NOTE | 2019-11-19 10:23 | BHS.RME ---
Substance Use & Tx History - Substance Use History Alcohol Substance amount: 6x16 ounce beer Frequency of use: Daily Substance route: Oral Date of Last Use: 11/19/19 (First use age 14 y. No seizures. Blackout many years ago. 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) Cocaine-Crack Substance amount: $40 to $50 Frequency of use: Daily Substance route: Smoking Date of Last Use: 11/18/19 (first use age 36y) Marijuana/Hashish Substance amount: $5 Frequency of use: Daily Substance route: Smoking Date of Last Use: 11/19/19 (First use age 15y) Nicotine Substance amount: 1/2 pack Frequency of use: Daily Substance route: Smoking Date of Last Use: 11/19/19 (First use age 13 y) - Last Treatment Date of last treatment: 05/23 to 05/27/19 Treatment type: Substance Use Disorder (ANDREW) Where was last treatment: Detox Physical/Psych/Mental Status - Behavior General Behavior: Decreased activity Eye Contact: Normal - Cooperativeness Cooperativeness: Cooperative - Thinking Thought Processes: Tight Thought content: Future oriented - Physical Health Problems Is patient presently having any pain?: No Does patient presently have any injuries (include location): No Does patient currently have a fever: No CIWA Nausea/Vomitin-Mild Nausea/No Vomiting Muscle Tremors: 2 Anxiety: 3 Agitation: 1-Slight > Activity Paroxysmal Sweats: 3 Orientation: 0-Oriented Tacttile Disturbances: 0-None Auditory Disturbances: 2-Mild Harshness/Frighten Visual Disturbances: 0-None Headache: 0-None Present CIWA-Ar Total Score: 12
--- NOTE | 2019-11-19 10:53 | HP ---
CIWA Score Nausea/Vomitin-Mild Nausea/No Vomiting Muscle Tremors: 2 Anxiety: 3 Agitation: 1-Slight > Activity Paroxysmal Sweats: 3 Orientation: 0-Oriented Tacttile Disturbances: 0-None Auditory Disturbances: 2-Mild Harshness/Frighten Visual Disturbances: 0-None Headache: 0-None Present CIWA-Ar Total Score: 12 - Admission Criteria [facility]ASAS Guidelines: Admission for Medically Managed Detox: Requires at least one of the followin. CIWA greater than 12 2. Seizures within the past 24 hours 3. Delirium tremens within the past 24 hours 4. Hallucinations within the past 24 hours 5. Acute intervention needed for co occurring medical disorder 6. Acute intervention needed for co occurring psychiatric disorder 7. Severe withdrawal that cannot be handled at a lower level of care (continued vomiting, continued diarrhea, abnormal vital signs) requiring intravenous medication and/or fluids 8. Admitting History and Physical - Admission Chief Complaint: "I Just need to stop." History of Present Illness: 68 year old male with history of alcohol dependence with withdrawals. He was last hsere in 05/23-05/27/19 and completed detox but relapsed within days of discharge. Substance Use & Tx History - Substance Use History Alcohol Substance amount: 6x16 ounce beer Frequency of use: Daily Substance route: Oral Date of Last Use: 11/19/19 (First use age 14 y. No seizures. Blackout many ye ars ago. Admits to an eye opene Cocaine-Crack Substance amount: $40 to $50 Frequency of use: Daily Substance route: Smoking Date of Last Use: 11/18/19 (first use age 36y) Marijuana/Hashish Substance amount: $5 Frequency of use: Daily Substance route: Smoking Date of Last Use: 11/19/19 (First use age 15y) Nicotine Substance amount: 1/2 pack Frequency of use: Daily Substance route: Smoking Date of Last Use: 11/19/19 (First use age 13 y) - Last Treatment Date of last treatment: 05/23 to 05/27/19 Treatment type: Substance Use Disorder PMH: HIV on Biktarvy, last dose 1 week ago Psurg: Torn meniscus L, Biopsy - spleen/cancer, treated with chemo 1993, cataract surgery Psych: Depression, PTSD on no meds [place] [address]. No legal issues pending. CIWA=12 RAMIN=0.028 Patient meets criteria due to his poor judgment into his disease and high risk for relapse. He endorses blackouts in the past and the need for an eye ict managers daily. In addition patient has HIV with poor compliance with treatment due to his substance use. History Source: Patient Limitations to Obtaining History: No Limitations - Past Medical History Infectious Disease: Yes: HIV Psych: Yes: Addictions, Depression, Other (PST) Additional Past Medical History: PTSD - Smoking History Smoking history: Current every day smoker Have you smoked in the past 12 months: No Aproximately how many cigarettes per day: 20 - Alcohol/Substance Use Hx Alcohol Use: Yes (BEER/VODKA) Admission [facility] Allergies/Adverse Reactions: Allergies Allergy/AdvReac Type Severity Reaction Status Date / Time No Known Allergies Allergy Verified 11/19/19 10:53 Exam Limitations: No Limitations - Ebola screening Have you traveled outside of the country in the last 21 days: No Have you had contact with anyone from an Ebola affected area: No Have you been sick,other than usual withdrawal symptoms: No Do you have a fever: No - Review of Systems Constitutional: Chills, Diaphoresis, Unintentional Wgt. Loss EENT: reports: No Symptoms Reported Respiratory: reports: No Symptoms reported Cardiac: reports: No Symptoms Reported GI: reports: No Symptoms Reported : reports: No Symptoms Reported Musculoskeletal: reports: No Symptoms Reported Integumentary: reports: No Symptoms Reported Neuro: reports: No Symptoms reported Endocrine: reports: No Symptoms Reported Hematology: reports: No Symptoms Reported Psychiatric: reports: Judgement Intact, Mood/Affect Appropiate, Orientated x3, Agitated, Anxious Other Systems: Reviewed and Negative Patient History - Patient Medical History Hx Anemia: No Hx Asthma: No Hx Chronic Obstructive Pulmonary Disease (COPD): No Hx Cardiac Disorders: No Hx Hypertension: No Hx Hypercholesterolemia: Yes (ON MED-ATORVASTATIN 10 MG HS) HX Cerebrovascular Accident: Yes (X1 ONE YR AGO (SILENT STROKE BY EKG PER PT) ) Hx Seizures: No Hx Diabetes: No Hx Gastrointestinal Disorders: No (INDIGESTION) Hx Genitourinary Disorders: No 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) Hx Renal Disease (ESRD): No Hx Thyroid Disease: No Hx Human Immunodeficiency Virus (HIV): Yes (SINCE 1991-ON MEDS, noncompliant Bicktarvy) Hx Hepatitis C: No Hx Depression: Yes (NO MEDS) Hx Suicide Attempt: No Hx Schizophrenia: No - Patient Surgical History Past Surgical History: Yes Hx Neurologic Surgery: No Hx Cataract Extraction: Yes (both eyes(2016)) Hx Cardiac Surgery: No Hx Lung Surgery: No Hx Breast Surgery: No Hx Breast Biopsy: No Hx Abdominal Surgery: No Hx Appendectomy: No Hx Cholecystectomy: No Hx Genitourinary Surgery: No Hx Section: No Hx Orthopedic Surgery: Yes (lt knee(torn meniscus) Other Surgical History: lymphoma=on pancrease-chemo Anesthesia Reaction: No - PPD History Previous Implant?: Yes Documented Results: Negative w/proof Implanted On Prior [facility] Admission?: Yes Date: 05/25/19 Results: negative PPD to be Administered?: No - Smoking Cessation Smoking history: Current every day smoker Have you smoked in the past 12 months: No Aproximately how many cigarettes per day: 20 Hx Chewing Tobacco Use: No Initiated information on smoking cessation: Yes 'Breaking Loose' booklet given: 11/19/19 - Substances abused Alcohol Substance route: Oral Frequency: Daily Amount used: 6 - 16 oz beers Age of first use: 14 Date of last use: 11/18/19 Crack Substance route: Smoking Frequency: Daily Amount used: $40-50 Age of first use: 36 Date of last use: 11/18/19 Marijuana/Hashish Substance route: Smoking Frequency: Daily Amount used: $5 Age of first use: 15 Date of last use: 11/19/19 Admission Physical Exam [facility] - Physical General Appearance: Yes: Thin, Irritable, Sweating, Anxious HEENTM: Yes: Hearing grossly Normal, Normal ENT Inspection, Normocephalic, Normal Voice, ZAHRA, Pharynx Normal, Tm's normal Respiratory: Yes: Chest Non-Tender, Lungs Clear, Normal Breath Sounds, No Respiratory Distress, No Accessory Muscle Use Neck: Yes: No masses,lesions,Nodules, Supple, Trachea in good position Breast: Yes: Within Normal Limits Cardiology: Yes: Regular Rhythm, Regular Rate, S1, S2 Abdominal: Yes: Normal Bowel Sounds, Non Tender, Flat, Soft, Surgical Scar Genitourinary: Yes: Within Normal Limits Back: Yes: Normal Inspection Musculoskeletal: Yes: full range of Motion, Gait Steady, Pelvis Stable, Other (left knee scar) Extremities: Yes: Normal Capillary Refill, Normal Inspection, Normal Range of Motion, Non-Tender Neurological: Yes: information resources director II-XII NML intact, Fully Oriented, Alert, Motor Strength 5/5, Normal Mood/Affect, Normal Response Integumentary: Yes: Normal Color, Dry, Warm Lymphatic: Yes: Within Normal Limits - Diagnostic (1) Cannabis dependence, uncomplicated Current Visit: Yes Status: Acute (2) Substance induced mood disorder Current Visit: Yes Status: Acute (3) Substance-induced sleep disorder Current Visit: Yes Status: Acute (4) Alcohol dependence with uncomplicated withdrawal Current Visit: Yes Status: Chronic (5) Bipolar disorder Current Visit: Yes Status: Chronic (6) Cocaine dependence, uncomplicated Current Visit: Yes Status: Chronic (7) HIV (human immunodeficiency virus infection) Current Visit: Yes Status: Chronic Qualifiers: HIV symptom status: unspecified Qualified Code(s): B20 - Human immunodeficiency virus [HIV] disease (8) Hypercholesterolemia Current Visit: Yes Status: Chronic (9) Nicotine dependence Current Visit: Yes Status: Chronic Qualifiers: Nicotine product type: cigarettes Substance use status: uncomplicated Qualified Code(s): F17.210 - Nicotine dependence, cigarettes, uncomplicated (10) MDD (major depressive disorder) Current Visit: Yes Status: Ruled-out Qualifiers: Major depression episode severity: unspecified Cleared for Admission [facility] - Detox or Rehab [facility] Level of Care: Medically Managed Detox Regimen/Protocol: Librium Claeared for Rehab Admission: No Screened but not Admitted - Documentation of Visit Screened but not Admitted: No Breathalyzer - Breathalyzer Breathalyzer: 0.028 Urine Drug Screen - Test Device Lot number: [id number] Expiration date: 03/16/21 - Control Is test valid?: Yes - Results Drug screen NEGATIVE: No Urine drug screen results: THC-Marijuana, TERRENCE-Cocaine, MTD-Methadone Inpatient Rehab Admission - Rehab Decision to Admit Inpatient rehab admission?: No
[2019-11-19] MEDS ORDERED: MAGNESIUM CITRATE 300 ML BOTTLE PO PRN (11:13)
[2019-11-19] MEDS ORDERED: MENTHOL/PHENOL 1 EACH UD MM PRN (11:13)
[2019-11-19] MEDS ORDERED: NICOTINE POLACRILEX 2 MG GUM BUC PRN (11:13)
[2019-11-19] MEDS ORDERED: ONDANSETRON *ODT* 4 MG TABLET SL ONE (11:13)
[2019-11-19] MEDS ORDERED: MAG HYDROX/AL HYDROX/SIMETH 30 ML UNIT-DOSE CUP PO PRN (11:13)
[2019-11-19] MEDS ORDERED: IBUPROFEN 400 MG TABLET (FP) PO PRN (11:13)
[2019-11-19] MEDS ORDERED: ACETAMINOPHEN 325 MG TABLET (FP) PO PRN ×2 (11:13)
[2019-11-19] MEDS ORDERED: chlordiazePOXIDE HCL 25 MG CAPSULE PO PRN (11:13)
[2019-11-19] MEDS ORDERED: METHOCARBAMOL 500 MG TABLET PO PRN (11:13)
[2019-11-19] MEDS ORDERED: MAGNESIUM HYDROX 2400MG/30ML ORAL SUSPENSION 30 ML CUP PO PRN (11:13)
[2019-11-19] MEDS ORDERED: BISMUTH SUBSALICYLATE 262 MG/15 ML BTL PO PRN (11:13)
[2019-11-19] MEDS ORDERED: PNEUMOC 13-VAL CONJ-DIP CRM/PF 0.5 ML DISP.SYRIN IM ONE (11:28)
[2019-11-19 11:43] VITALS: BMI 19.0
[2019-11-19] MEDS: PRENATAL VITAMINS W/ FOLIC ACID TABLET (FP) PO SCH (12:35)
[2019-11-19] MEDS: chlordiazePOXIDE HCL 25 MG CAPSULE PO SCH ×3 (12:35→22:24)
[2019-11-19] MEDS: NICOTINE 7 MG/24 HOURS TOPICAL PATCH TD SCH (12:36)
[2019-11-19] MEDS: hydrOXYzine PAMOATE 25 MG CAPSULE (FP) PO SCH ×3 (15:03→22:25)
[2019-11-19 17:09] LABS: HEMATOCRIT 44.8 % (35.4-49); HEMOGLOBIN 15.1 GM/dL (11.7-16.9); MCH 30.6 pg (25.7-33.7); MCHC 33.6 g/dl (32.0-35.9); MEAN PLT VOLUME 9.2 fl (7.5-11.1); PLATELET COUNT 151 K/MM3 (134-434); RBC 4.92 M/mm3 (4.00-5.60); RDW 14.2 % (11.9-15.9); WHITE BLOOD COUNT 4.9 K/mm3 (4.0-10.0)
[2019-11-19 17:26] LABS: ALBUMIN 3.4 g/dl (3.4-5.0); BILIRUBIN,TOTAL 0.6 mg/dL (0.2-1); CALCIUM 9.4 mg/dL (8.5-10.1); CREATININE 1.4 mg/dL (0.55-1.3); POTASSIUM 4.7 mmol/L (3.5-5.1); TOT PROT 7.9 g/dl (6.4-8.2)
[2019-11-19] MEDS: THIAMINE HCL 100 MG TABLET (FP) PO SCH (22:24)
[2019-11-19] MEDS: MELATONIN 5 MG TABLETS PO SCH (22:25)
[2019-11-20] MEDS: chlordiazePOXIDE HCL 25 MG CAPSULE PO SCH ×4 (06:13→22:26)
[2019-11-20] MEDS: hydrOXYzine PAMOATE 25 MG CAPSULE (FP) PO SCH ×5 (06:13→22:29)
[2019-11-20] MEDS: BICTEGRAV/EMTRICIT/TENOFOV (BIKTARVY) 50-200-25 MG TABLET PO SCH (07:04)
[2019-11-20] MEDS: ATORVASTATIN CA 10 MG TABLET (FP) PO SCH (10:21)
[2019-11-20] MEDS: PRENATAL VITAMINS W/ FOLIC ACID TABLET (FP) PO SCH (10:21)
[2019-11-20] MEDS: NICOTINE 7 MG/24 HOURS TOPICAL PATCH TD SCH (10:21)
--- NOTE | 2019-11-20 12:18 | CONSULT ---
[facility] Psychiatric Consult - Data Date of interview: 11/20/19 Admission source: [facility] Identifying data: Patient is a 68 year old single male, without children, unemployed, domiciled, and is supported by [facility]. This is one of multiple admissions for patient. Patient admitted to for alcohol, cocaine, and marijuana dependence. Substance Abuse History: Smoking Cessation. Smoking history: Current every day smoker. Have you smoked in the past 12 months: No. Aproximately how many cigarettes per day: 20. Hx Chewing Tobacco Use: No. Initiated information on smoking cessation: Yes. 'Breaking Loose' booklet given: 11/19/19. - Substances abused. Alcohol. Substance route: Oral. Frequency: Daily. Amount used: 6 - 16 oz beers. Age of first use: 14. Date of last use: 11/18/19. Crack. Substance route: Smoking. Frequency: Daily. Amount used: $40-50. Age of first use: 36. Date of last use: 11/18/19. Marijuana/Hashish. Substance route: Smoking. Frequency: Daily. Amount used: $5. Age of first use: 15. Date of last use: 11/19/19 Medical History: Significant for HIV infection since 1991, hypercholesterolemia, history of cerebrovascular accident (2016) without residual weakness, bilateral cataract surgery in 2015, chemotherapy for large cell lymphoma(spleen),and orthosurgery for torn meniscus (left knee) in 1991. Psychiatric History: Patient is known from one previous admission to this facility. History narrative remains consistent. Reports that his first psychiatric contact occured in early 's after seeing a psychiatrist due to mood instability. He was diagnosed with MDD and treated with paxil. Mr. Castro reports a history of seeing various psychiatrist on and off [facility] the years. His most recent outpatient psychiatric care was at the [facility] in [place], [place] approximately one year ago. Patient is currently not accepting psychotropic medications and is totally lost in follow up care. As per previous notes, patient has been prescribed Paxil, Zoloft, Lamictal and abilify. Mr. Castro reports a history of depression but previous note stated that patient reported a past diagnosis of Bipolar disordery. No history of psychiatric hospitalizations and suicide attempt. At present patient presents as lethargic. Physical/Sexual Abuse/Trauma History: denies. Mental Status Exam - Mental Status Exam Alert and Oriented to: Time, Place, Person Cognitive Function: Good Patient Appearance: Unkempt Mood: Withdrawn Affect: Flat Patient Behavior: Fatigued, Asleep Speech Pattern: Delayed (Patient needed to be awaken several times to complete assessment. ) Voice Loudness: Moderately Soft/Quiet Thought Process: Goal Oriented Thought Disorder: Not Present Hallucinations: Denies Suicidal Ideation: Denies Homicidal Ideation: Denies Insight/Judgement: Poor Sleep: Fair Appetite: Poor Muscle strength/Tone: Normal Gait/Station: Other (Gait not observed.) Psychiatric Findings - Problem List ([place] 1, 2,3) (1) Cannabis dependence, uncomplicated Status: Chronic (2) Substance induced mood disorder Status: Acute (3) Alcohol dependence with uncomplicated withdrawal Status: Acute (4) Cocaine dependence, uncomplicated Status: Chronic (5) Mood disorder Status: Chronic - Initial Treatment Plan Initial Treatment Plan: Psychoeducation provided. Detoxification in progress. Observation.
--- NOTE | 2019-11-20 13:51 | PN ---
[facility] CIWA - CIWA Score Nausea/Vomitin-No Nausea/No Vomiting Muscle Tremors: 4-Moderate,w/Arms Extend Anxiety: 5 Agitation: 3 Paroxysmal Sweats: 1-Minimal Palms Moist Orientation: 0-Oriented Tacttile Disturbances: 0-None Auditory Disturbances: 0-None Visual Disturbances: 0-None Headache: 0-None Present CIWA-Ar Total Score: 13 [facility] Progress Note (SOAP) Subjective: Pt is a 68 y/o male admitted for alcohol withdrawal sx c/o sl anxiety fatigue sl tremors Objective: 11/20/19 13:51 Vital Signs - 24 hr 11/19/19 11/19/19 11/20/19 16:50 20:40 05:50 Temperature 98.4 F 98.2 F 97.8 F Pulse Rate 79 82 64 Respiratory 18 18 18 Rate Blood Pressure 125/72 114/74 145/73 O2 Sat by Pulse 96 96 Oximetry (%) Laboratory Tests 11/19/19 11/19/19 11/19/19 12:00 12:00 12:00 WBC 4.9 RBC 4.92 Hgb 15.1 Hct 44.8 MCV 91.0 MCH 30.6 MCHC 33.6 RDW 14.2 Plt Count 151 MPV 9.2 Sodium 138 Potassium 4.7 Chloride 104 Carbon Dioxide 29 Anion Gap 5 L BUN 22.0 H Creatinine 1.4 H Est GFR (CKD-EPI)AfAm 59.83 Est GFR (CKD-EPI)NonAf 51.62 Random Glucose 89 Calcium 9.4 Total Bilirubin 0.6 AST 19 ALT 17 Alkaline Phosphatase 54 Total Protein 7.9 Albumin 3.4 Syphilis Serology Reactive A* RPR Titer 11/19/19 12:00 WBC RBC Hgb Hct MCV MCH MCHC RDW Plt Count MPV Sodium Potassium Chloride Carbon Dioxide Anion Gap BUN Creatinine Est GFR (CKD-EPI)AfAm Est GFR (CKD-EPI)NonAf Random Glucose Calcium Total Bilirubin AST ALT Alkaline Phosphatase Total Protein Albumin Syphilis Serology RPR Titer Reactive 1:1 H D Previously treated for hx Syphilis since 1991 covid -19 result pending alert o x 3 nad oob ambulating with steady gait Assessment: 11/20/19 13:57 withdrawal sx Plan: cont ndetox increase po fluids maintain safety
[2019-11-20] MEDS: MELATONIN 5 MG TABLETS PO SCH (22:26)
[2019-11-20] MEDS: THIAMINE HCL 100 MG TABLET (FP) PO SCH (22:26)
[2019-11-20 22:50] LABS: URINE APPEARANCE CLEAR; URINE BILIRUBIN NEGATIVE (NEGATIVE); URINE COLOR YELLOW; URINE GLUCOSE (UA) NEGATIVE (NEGATIVE); URINE KETONE NEGATIVE (NEGATIVE); URINE LEUK ESTERASE NEGATIVE (NEGATIVE); URINE NITRITE NEGATIVE (NEGATIVE); URINE PROTEIN NEGATIVE (NEGATIVE)
[2019-11-21] MEDS: hydrOXYzine PAMOATE 25 MG CAPSULE (FP) PO SCH ×5 (06:42→22:55)
[2019-11-21] MEDS: chlordiazePOXIDE HCL 25 MG CAPSULE PO SCH ×4 (06:43→22:55)
[2019-11-21] MEDS: BICTEGRAV/EMTRICIT/TENOFOV (BIKTARVY) 50-200-25 MG TABLET PO SCH (10:57)
[2019-11-21] MEDS: PRENATAL VITAMINS W/ FOLIC ACID TABLET (FP) PO SCH (10:57)
[2019-11-21] MEDS: NICOTINE 7 MG/24 HOURS TOPICAL PATCH TD SCH (10:57)
[2019-11-21] MEDS: ATORVASTATIN CA 10 MG TABLET (FP) PO SCH (10:57)
--- NOTE | 2019-11-21 17:04 | PN ---
S CIWA - CIWA Score Nausea/Vomitin-No Nausea/No Vomiting Muscle Tremors: 2 Anxiety: 3 Agitation: 2 Paroxysmal Sweats: 1-Minimal Palms Moist Orientation: 0-Oriented Tacttile Disturbances: 0-None Auditory Disturbances: 0-None Visual Disturbances: 0-None Headache: 0-None Present CIWA-Ar Total Score: 8 [facility] Progress Note (SOAP) Subjective: Pt reports decreased withdrawal sx sl tremors anxiety sweats slept well. Objective: 11/21/19 17:03 Vital Signs - 24 hr 11/20/19 11/21/19 11/21/19 20:37 05:55 09:51 Temperature 97.3 F L 98.0 F 97.8 F Pulse Rate 76 61 65 Respiratory 18 18 18 Rate Blood Pressure 125/69 137/68 137/82 O2 Sat by Pulse 98 61 L Oximetry (%) 11/21/19 13:47 Temperature 97.5 F L Pulse Rate 71 Respiratory 16 Rate Blood Pressure 134/79 O2 Sat by Pulse 97 Oximetry (%) Laboratory Tests 11/19/19 11/19/19 11/19/19 12:00 12:00 12:00 WBC 4.9 RBC 4.92 Hgb 15.1 Hct 44.8 MCV 91.0 MCH 30.6 MCHC 33.6 RDW 14.2 Plt Count 151 MPV 9.2 Sodium 138 Potassium 4.7 Chloride 104 Carbon Dioxide 29 Anion Gap 5 L BUN 22.0 H Creatinine 1.4 H Est GFR (CKD-EPI)AfAm 59.83 Est GFR (CKD-EPI)NonAf 51.62 Random Glucose 89 Calcium 9.4 Total Bilirubin 0.6 AST 19 ALT 17 Alkaline Phosphatase 54 Total Protein 7.9 Albumin 3.4 Urine Color Urine Appearance Urine pH Ur Specific [place] Urine Protein Urine Glucose (UA) Urine Ketones Urine Blood Urine Nitrite Urine Bilirubin Urine Urobilinogen Ur Leukocyte Esterase Syphilis Serology Reactive A* RPR Titer COVID-19 (CHELO) 11/19/19 11/20/19 11/20/19 12:00 09:55 19:25 WBC RBC Hgb Hct MCV MCH MCHC RDW Plt Count MPV Sodium Potassium Chloride Carbon Dioxide Anion Gap BUN Creatinine Est GFR (CKD-EPI)AfAm Est GFR (CKD-EPI)NonAf Random Glucose Calcium Total Bilirubin AST ALT Alkaline Phosphatase Total Protein Albumin Urine Color Yellow Urine Appearance Clear Urine pH 6.0 Ur Specific [place] 1.020 Urine Protein Negative Urine Glucose (UA) Negative Urine Ketones Negative Urine Blood Negative Urine Nitrite Negative Urine Bilirubin Negative Urine Urobilinogen 1.0 Ur Leukocyte Esterase Negative Syphilis Serology RPR Titer Reactive 1:1 H D COVID-19 (CHELO) Not detected alert o x 3 nad oob ambulating with steady gait Assessment: 11/21/19 17:04 w/s Plan: cont detox
[2019-11-21] MEDS: MELATONIN 5 MG TABLETS PO SCH (22:55)
[2019-11-21] MEDS: THIAMINE HCL 100 MG TABLET (FP) PO SCH (22:55)
[2019-11-22] MEDS ORDERED: chlordiazePOXIDE HCL 10 MG CAPSULE PO PRN
[2019-11-22] MEDS: chlordiazePOXIDE HCL 10 MG CAPSULE PO SCH ×4 (06:31→22:22)
[2019-11-22] MEDS: hydrOXYzine PAMOATE 25 MG CAPSULE (FP) PO SCH ×5 (06:31→22:21)
--- NOTE | 2019-11-22 10:41 | PN ---
[facility] CIWA - CIWA Score Nausea/Vomitin-No Nausea/No Vomiting Muscle Tremors: None Anxiety: 1-Mildly Anxious Agitation: 1-Slight > Activity Paroxysmal Sweats: No Perspiration Orientation: 2-Disoriented Date<2 days Tacttile Disturbances: 0-None Auditory Disturbances: 1-Very Mild Visual Disturbances: 1-Very Mild Sensitivity Headache: 0-None Present CIWA-Ar Total Score: 6 [facility] Progress Note (SOAP) Subjective: Complaints of anxiety, light and noise sensitivity. Objective: 11/22/19 10:39 PE Gnl: WDWN, in no distress MS: irritable Motor: moves limbs symetrically Coord: normal, no tremor Home Medication List Medication Instructions Recorded Confirmed Type Atorvastatin Calcium [Lipitor] 10 mg PO DAILY 11/19/19 11/19/19 History Bictegrav/Emtricit/Tenofov Ala 1 tab PO DAILY 11/19/19 11/19/19 History [Biktarvy 50-200-25 mg Tablet] Active Medications Generic Name Dose Route Start Last Admin Trade Name Freq PRN Reason Stop Dose Admin Acetaminophen 650 mg 11/19/19 11:13 Tylenol - PO Q6H PRN PAIN LEVEL 4 - 6 Acetaminophen 650 mg 11/19/19 11:13 Tylenol - PO Q6H PRN FEVER Al Hydroxide/Mg Hydroxide 30 ml 11/19/19 11:13 Mylanta Oral Suspension - PO Q6H PRN DYSPEPSIA Atorvastatin Calcium 10 mg 11/20/19 10:00 11/21/19 10:57 Lipitor - PO 10 mg DAILY MAYA Administration Bictegravir/Emtricitabine/Tenofovir 1 each 11/20/19 08:00 11/21/19 10:57 Biktarvy 50-200-25 Mg Tablet PO 1 each DAILY@0800 MAYA Administration Bismuth Subsalicylate 30 ml 11/19/19 11:13 Pepto-Bismol Liquid - PO Q1H PRN DIARRHEA Chlordiazepoxide HCl 10 mg 11/22/19 05:00 11/22/19 06:31 Librium - PO 11/22/19 23:01 10 mg [id number] MAYA Administration Chlordiazepoxide HCl 10 mg 11/23/19 05:00 Librium - PO 11/23/19 17:01 Q12H MAYA Chlordiazepoxide HCl 10 mg 11/22/19 00:00 Librium - PO 11/23/19 00:00 Q4H PRN WITHDRAWAL(CONT SUBST) Chlordiazepoxide HCl 10 mg 11/24/19 05:00 Librium - PO 11/24/19 05:01 ONCE@0500 ONE Eucalyptus/Menthol/Phenol/Sorbitol 1 each 11/19/19 11:13 Cepastat Lozenge - MM 11/25/19 11:14 Q4H PRN SORE THROAT Hydroxyzine Pamoate 25 mg 11/19/19 14:00 11/22/19 06:31 Vistaril - PO 11/25/19 11:13 25 mg Q4HWA MAYA Administration Ibuprofen 400 mg 11/19/19 11:13 Motrin - PO Q6H PRN PAIN LEVEL 1 - 3 Magnesium Citrate 300 ml 11/19/19 11:13 Citroma - PO Q48H PRN CONSTIPATION Magnesium Hydroxide 30 ml 11/19/19 11:13 Milk Of Magnesia - PO PRN PRN CONSTIPATION Melatonin 5 mg 11/19/19 22:00 11/21/19 22:55 Melatonin PO Not Given [facility] Methocarbamol 500 mg 11/19/19 11:13 Robaxin - PO 11/25/19 11:14 Q6H PRN MUSCLE SPASMS Nicotine 7 mg 11/19/19 11:15 11/21/19 10:57 Nicoderm Patch - TD 7 mg DAILY [facility] Administration Nicotine Polacrilex 2 mg 11/19/19 11:13 Nicorette Gum - BUC Q2H PRN NICOTINE REPLACEMENT RX Multivit/Folic Acid/Iron 1 tab 11/19/19 11:15 11/21/19 10:57 Vitamins (Sjr) - PO 1 tab DAILY [facility] Administration Thiamine HCl 100 mg 11/19/19 22:00 11/21/19 22:55 Vitamin B1 - PO Not Given [facility] Vital Signs Temperature 97.3 F L 11/22/19 08:35 Pulse Rate 61 11/22/19 08:35 Respiratory Rate 18 11/22/19 08:35 Blood Pressure 112/64 11/22/19 08:35 O2 Sat by Pulse Oximetry (%) 96 11/22/19 08:35 Laboratory Tests 11/19/19 11/19/19 11/19/19 12:00 12:00 12:00 WBC 4.9 RBC 4.92 Hgb 15.1 Hct 44.8 MCV 91.0 MCH 30.6 MCHC 33.6 RDW 14.2 Plt Count 151 MPV 9.2 Sodium 138 Potassium 4.7 Chloride 104 Carbon Dioxide 29 Anion Gap 5 L BUN 22.0 H Creatinine 1.4 H Est GFR (CKD-EPI)AfAm 59.83 Est GFR (CKD-EPI)NonAf 51.62 Random Glucose 89 Calcium 9.4 Total Bilirubin 0.6 AST 19 ALT 17 Alkaline Phosphatase 54 Total Protein 7.9 Albumin 3.4 Urine Color Urine Appearance Urine pH Ur Specific [place] Urine Protein Urine Glucose (UA) Urine Ketones Urine Blood Urine Nitrite Urine Bilirubin Urine Urobilinogen Ur Leukocyte Esterase Syphilis Serology Reactive A* RPR Titer COVID-19 (CHELO) 11/19/19 11/20/19 11/20/19 12:00 09:55 19:25 WBC RBC Hgb Hct MCV MCH MCHC RDW Plt Count MPV Sodium Potassium Chloride Carbon Dioxide Anion Gap BUN Creatinine Est GFR (CKD-EPI)AfAm Est GFR (CKD-EPI)NonAf Random Glucose Calcium Total Bilirubin AST ALT Alkaline Phosphatase Total Protein Albumin Urine Color Yellow Urine Appearance Clear Urine pH 6.0 Ur Specific [place] 1.020 Urine Protein Negative Urine Glucose (UA) Negative Urine Ketones Negative Urine Blood Negative Urine Nitrite Negative Urine Bilirubin Negative Urine Urobilinogen 1.0 Ur Leukocyte Esterase Negative Syphilis Serology RPR Titer Reactive 1:1 H D COVID-19 (CHELO) Not detected Assessment: 11/22/19 10:34 68 year old male with history of alcohol dependence with withdrawals. He was last here in 05/23-05/27/19 and completed detox but relapsed within days of discharge. IMP 1. Alcohol use disorder 2. Cocaine dependence 3, Cannabis dependence 4. Nicotine dependence Plan: 1. Librium detox, projected completion on 11/23
[2019-11-22] MEDS: BICTEGRAV/EMTRICIT/TENOFOV (BIKTARVY) 50-200-25 MG TABLET PO SCH (10:44)
[2019-11-22] MEDS: PRENATAL VITAMINS W/ FOLIC ACID TABLET (FP) PO SCH (10:44)
[2019-11-22] MEDS: ATORVASTATIN CA 10 MG TABLET (FP) PO SCH (10:44)
[2019-11-22] MEDS: NICOTINE 7 MG/24 HOURS TOPICAL PATCH TD SCH (10:45)
[2019-11-22] MEDS: THIAMINE HCL 100 MG TABLET (FP) PO SCH (22:22)
[2019-11-22] MEDS: MELATONIN 5 MG TABLETS PO SCH (22:22)
[2019-11-23] MEDS ORDERED: chlordiazePOXIDE HCL 10 MG CAPSULE PO SCH (05:00)
[2019-11-23] MEDS: hydrOXYzine PAMOATE 25 MG CAPSULE (FP) PO SCH (05:31)
[2019-11-23 09:19] VITALS: BP 121/70; PULSE 68; TEMP 97.3
--- NOTE | 2019-11-23 14:27 | DS ---
[facility] Detox Discharge Summary Admission Date: 11/19/19 Discharge Date: 11/23/19 - History Present History: Alcohol Dependence, Cannabis Dependence, Cocaine Dependence Additional Comments: Pt is medically cleared and discharged today. Pt completed the detox protocol. Pt is encouraged to follow-up with an outpatient CD program and also to follow- up with his PMD which he verbalized understanding. Pt is alert and oriented x3 and in no acute respiratory distress, Full ROM, and ambulatory. Pertinent Past History: h/o alcohol, cocaine, and cannabis use disorder. - Physical Exam Results Vital Signs: Vital Signs Temperature 97.3 F L 11/23/19 09:18 Pulse Rate 68 11/23/19 09:18 Respiratory Rate 18 11/23/19 09:18 Blood Pressure 121/70 11/23/19 09:18 O2 Sat by Pulse Oximetry (%) 97 11/23/19 09:18 Laboratory Last Values WBC 4.9 K/mm3 (4.0-10.0) 11/19/19 12:00 RBC 4.92 M/mm3 (4.00-5.60) 11/19/19 12:00 Hgb 15.1 GM/dL (11.7-16.9) 11/19/19 12:00 Hct 44.8 % (35.4-49) 11/19/19 12:00 MCV 91.0 fl (80-96) 11/19/19 12:00 MCH 30.6 pg (25.7-33.7) 11/19/19 12:00 MCHC 33.6 g/dl (32.0-35.9) 11/19/19 12:00 RDW 14.2 % (11.9-15.9) 11/19/19 12:00 Plt Count 151 K/MM3 (134-434) 11/19/19 12:00 MPV 9.2 fl (7.5-11.1) 11/19/19 12:00 Sodium 138 mmol/L (136-145) 11/19/19 12:00 Potassium 4.7 mmol/L (3.5-5.1) 11/19/19 12:00 Chloride 104 mmol/L (98-107) 11/19/19 12:00 Carbon Dioxide 29 mmol/L (21-32) 11/19/19 12:00 Anion Gap 5 MMOL/L (8-16) L 11/19/19 12:00 BUN 22.0 mg/dL (7-18) H 11/19/19 12:00 Creatinine 1.4 mg/dL (0.55-1.3) H 11/19/19 12:00 Est GFR (CKD-EPI)AfAm 59.83 11/19/19 12:00 Est GFR (CKD-EPI)NonAf 51.62 11/19/19 12:00 Random Glucose 89 mg/dL (74-106) 11/19/19 12:00 Calcium 9.4 mg/dL (8.5-10.1) 11/19/19 12:00 Total Bilirubin 0.6 mg/dL (0.2-1) 11/19/19 12:00 AST 19 U/L (15-37) 11/19/19 12:00 ALT 17 U/L (13-61) 11/19/19 12:00 Alkaline Phosphatase 54 U/L (45-117) 11/19/19 12:00 Total Protein 7.9 g/dl (6.4-8.2) 11/19/19 12:00 Albumin 3.4 g/dl (3.4-5.0) 11/19/19 12:00 Urine Color Yellow 11/20/19 19:25 Urine Appearance Clear 11/20/19 19:25 Urine pH 6.0 (5.0-8.0) 11/20/19 19:25 Ur Specific [place] 1.020 (1.010-1.035) 11/20/19 19:25 Urine Protein Negative (NEGATIVE) 11/20/19 19:25 Urine Glucose (UA) Negative (NEGATIVE) 11/20/19 19:25 Urine Ketones Negative (NEGATIVE) 11/20/19 19:25 Urine Blood Negative (NEGATIVE) 11/20/19 19:25 Urine Nitrite Negative (NEGATIVE) 11/20/19 19:25 Urine Bilirubin Negative (NEGATIVE) 11/20/19 19:25 Urine Urobilinogen 1.0 mg/dL (0.2-1.0) 11/20/19 19:25 Ur Leukocyte Esterase Negative (NEGATIVE) 11/20/19 19:25 Syphilis Serology Reactive (NONREACTIVE) A* 11/19/19 12:00 RPR Titer Reactive 1:1 (NONREACTIVE) H D 11/19/19 12:00 COVID-19 (CHELO) Not detected (Not Detected) 11/20/19 09:55 Labs noted. Pertinent Admission Physical Exam Findings: withdrawal symptoms. - Treatment Hospital Course: Detox Protocol Followed, Detoxed Safely, Responded well, Discharged Condition Good - Medication Discharge Medications: Ambulatory Orders Atorvastatin Calcium [Lipitor] 10 mg PO DAILY 11/19/19 Bictegrav/Emtricit/Tenofov Ala [Biktarvy 50-200-25 mg Tablet] 1 tab PO DAILY 11/19/19 - Diagnosis (1) Alcohol dependence with uncomplicated withdrawal Status: Acute (2) Cannabis dependence, uncomplicated Status: Chronic (3) Cocaine dependence, uncomplicated Status: Chronic (4) HIV (human immunodeficiency virus infection) Status: Chronic Qualifiers: HIV symptom status: unspecified Qualified Code(s): B20 - Human immunodeficiency virus [HIV] disease (5) Hypercholesterolemia Status: Chronic (6) Nicotine dependence Status: Chronic Qualifiers: Nicotine product type: cigarettes Substance use status: uncomplicated Qualified Code(s): F17.210 - Nicotine dependence, cigarettes, uncomplicated - AMA Did Patient Leave Against Medical Advice: No
[2019-11-24] MEDS ORDERED: chlordiazePOXIDE HCL 10 MG CAPSULE PO ONE (05:00)
== END 2019-11-23 10:31 | disposition home or self-care (01) | DRG 897 ==
LOC: YASAS 09:43 → Y5N DETOX 11:44 → Y3N 11-21 16:17
PROVIDERS: ADMIT Allergy & Immunology; ATTEND Allergy & Immunology
PROC: HZ2ZZZZ Detoxification Services for Substance Abuse Treatment (ICD-10-PCS; principal; 2019-11-19)
DX: F10.230 Alcohol dependence with withdrawal, uncomplicated (principal); F14.20 Cocaine dependence, uncomplicated; F19.282 Other psychoactive substance dependence with psychoactive substance-induced sleep disorder; F12.20 Cannabis dependence, uncomplicated; F17.210 Nicotine dependence, cigarettes, uncomplicated; F19.24 Other psychoactive substance dependence with psychoactive substance-induced mood disorder; F39 Unspecified mood [affective] disorder; F31.9 Bipolar disorder, unspecified; Z21 Asymptomatic human immunodeficiency virus [HIV] infection status; E78.00 Pure hypercholesterolemia, unspecified; Z86.73 Personal history of transient ischemic attack (TIA), and cerebral infarction without residual deficits; Z87.438 Personal history of other diseases of male genital organs; Z85.79 Personal history of other malignant neoplasms of lymphoid, hematopoietic and related tissues; Z92.21 Personal history of antineoplastic chemotherapy; Z91.14 Patient's other noncompliance with medication regimen
CPT/HCPCS: 36415; 80053; 81003; 85027; 86593; 86780; U0003

== ENCOUNTER 2020-03-04 10:29 | Inpatient (IN) | payer OTHER ==
[2020-03-04] MEDS ORDERED: METHOCARBAMOL 500 MG TABLET PO PRN (11:24)
[2020-03-04] MEDS ORDERED: ACETAMINOPHEN 325 MG TABLET (FP) PO PRN ×2 (11:24)
[2020-03-04] MEDS ORDERED: MAG HYDROX/AL HYDROX/SIMETH 30 ML UNIT-DOSE CUP PO PRN (11:24)
[2020-03-04] MEDS ORDERED: MAGNESIUM HYDROX 2400MG/30ML ORAL SUSPENSION 30 ML CUP PO PRN (11:24)
[2020-03-04] MEDS ORDERED: chlordiazePOXIDE HCL 25 MG CAPSULE PO PRN (11:24)
[2020-03-04] MEDS ORDERED: MAGNESIUM CITRATE 300 ML BOTTLE PO PRN (11:24)
[2020-03-04] MEDS ORDERED: MENTHOL/PHENOL 1 EACH UD MM PRN (11:24)
[2020-03-04] MEDS ORDERED: ONDANSETRON *ODT* 4 MG TABLET SL PRN (11:24)
[2020-03-04] MEDS ORDERED: NICOTINE POLACRILEX 2 MG GUM BUC PRN (11:24)
[2020-03-04] MEDS ORDERED: BISMUTH SUBSALICYLATE 262 MG/15 ML BTL PO PRN (11:24)
[2020-03-04] MEDS ORDERED: IBUPROFEN 400 MG TABLET (FP) PO PRN (11:24)
[2020-03-04 11:25] VITALS: BMI 17.9
[2020-03-04] MEDS: chlordiazePOXIDE HCL 25 MG CAPSULE PO SCH ×3 (11:59→22:15)
[2020-03-04] MEDS: PRENATAL VITAMINS W/ FOLIC ACID TABLET (FP) PO SCH (11:59)
[2020-03-04] MEDS: NICOTINE 7 MG/24 HOURS TOPICAL PATCH TD SCH (12:00)
[2020-03-04] MEDS: hydrOXYzine PAMOATE 25 MG CAPSULE (FP) PO SCH ×3 (13:35→22:15)
[2020-03-04 14:37] LABS: HEMATOCRIT 47.7 % (35.4-49); HEMOGLOBIN 16.3 GM/dL (11.7-16.9); MCH 30.9 pg (25.7-33.7); MCHC 34.2 g/dl (32.0-35.9); MEAN CELL VOLUME 90.3 fl (80-96); PLATELET COUNT 168 K/MM3 (134-434); RBC 5.28 M/mm3 (4.00-5.60); RDW 15.1 % (11.9-15.9); WHITE BLOOD COUNT 5.4 K/mm3 (4.0-10.0)
[2020-03-04 14:44] LABS: POTASSIUM 4.4 mmol/L (3.5-5.1)
[2020-03-04 14:46] LABS: ALBUMIN 3.6 g/dl (3.4-5.0); BLOOD UREA NITROGEN 20.5 mg/dL (7-18)
[2020-03-04 14:49] LABS: CREATININE 1.5 mg/dL (0.55-1.3)
[2020-03-04 14:51] LABS: BILIRUBIN,TOTAL 0.6 mg/dL (0.2-1); TOT PROT 8.6 g/dl (6.4-8.2)
[2020-03-04] MEDS: MELATONIN 5 MG TABLETS PO SCH (22:15)
[2020-03-04] MEDS: THIAMINE HCL 100 MG TABLET (FP) PO SCH (22:15)
[2020-03-05] MEDS: chlordiazePOXIDE HCL 25 MG CAPSULE PO SCH ×4 (05:29→22:36)
[2020-03-05] MEDS: hydrOXYzine PAMOATE 25 MG CAPSULE (FP) PO SCH ×3 (06:22→14:50)
[2020-03-05] MEDS ORDERED: PATIENT'S OWN MEDICATION (NON-FORMULARY) (Bictegrav/Emtricit/Tenofov Ala 1 EACH Tablet) PO SCH (08:00)
[2020-03-05] MEDS: ATORVASTATIN CA 10 MG TABLET (FP) PO SCH (10:32)
[2020-03-05] MEDS: PRENATAL VITAMINS W/ FOLIC ACID TABLET (FP) PO SCH (10:32)
[2020-03-05] MEDS: NICOTINE 7 MG/24 HOURS TOPICAL PATCH TD SCH (10:34)
[2020-03-05] MEDS: BICTEGRAV/EMTRICIT/TENOFOV (BIKTARVY) 50-200-25 MG TABLET PO SCH (10:49)
[2020-03-05] MEDS ORDERED: LOPERAMIDE HCL 2 MG CAPSULE PO ONE (14:49)
[2020-03-05] MEDS ORDERED: hydrOXYzine PAMOATE 25 MG CAPSULE (FP) PO PRN (14:50)
[2020-03-05] MEDS: MELATONIN 5 MG TABLETS PO SCH (22:36)
[2020-03-05] MEDS: THIAMINE HCL 100 MG TABLET (FP) PO SCH (22:37)
[2020-03-06] MEDS: chlordiazePOXIDE HCL 25 MG CAPSULE PO SCH ×2 (05:42→10:09)
[2020-03-06 09:19] VITALS: BP 112/78; PULSE 81; TEMP 97.5
[2020-03-06] MEDS: BICTEGRAV/EMTRICIT/TENOFOV (BIKTARVY) 50-200-25 MG TABLET PO SCH (10:09)
[2020-03-06] MEDS: NICOTINE 7 MG/24 HOURS TOPICAL PATCH TD SCH (10:09)
[2020-03-06] MEDS: PRENATAL VITAMINS W/ FOLIC ACID TABLET (FP) PO SCH (10:09)
[2020-03-06] MEDS: ATORVASTATIN CA 10 MG TABLET (FP) PO SCH (10:09)
[2020-03-07] MEDS ORDERED: chlordiazePOXIDE HCL 10 MG CAPSULE PO PRN
[2020-03-07] MEDS ORDERED: chlordiazePOXIDE HCL 10 MG CAPSULE PO SCH (05:00)
[2020-03-08] MEDS ORDERED: chlordiazePOXIDE HCL 10 MG CAPSULE PO SCH (05:00)
[2020-03-09] MEDS ORDERED: chlordiazePOXIDE HCL 10 MG CAPSULE PO ONE (05:00)
== END 2020-03-06 09:23 | disposition left against medical advice (07) | DRG 894 ==
LOC: YASAS 10:29 → Y3N 11:10
PROVIDERS: ADMIT Allergy & Immunology; ATTEND Allergy & Immunology
PROC: HZ2ZZZZ Detoxification Services for Substance Abuse Treatment (ICD-10-PCS; principal; 2020-03-04)
DX: F10.230 Alcohol dependence with withdrawal, uncomplicated (principal); F14.20 Cocaine dependence, uncomplicated; F19.282 Other psychoactive substance dependence with psychoactive substance-induced sleep disorder; F12.20 Cannabis dependence, uncomplicated; F17.210 Nicotine dependence, cigarettes, uncomplicated; F19.24 Other psychoactive substance dependence with psychoactive substance-induced mood disorder; F31.9 Bipolar disorder, unspecified; Z21 Asymptomatic human immunodeficiency virus [HIV] infection status; E78.00 Pure hypercholesterolemia, unspecified; Z98.41 Cataract extraction status, right eye; Z86.19 Personal history of other infectious and parasitic diseases; Z86.73 Personal history of transient ischemic attack (TIA), and cerebral infarction without residual deficits; Z56.0 Unemployment, unspecified
CPT/HCPCS: 36415; 80053; 85027; 86593; 86780; C9803; U0003

== ENCOUNTER 2020-06-06 11:18 | Inpatient (IN) | payer OTHER ==
[2020-06-06 12:36] VITALS: BMI 17.6
[2020-06-06] MEDS ORDERED: LORazepam 1 MG TABLET PO PRN (13:25)
[2020-06-06] MEDS ORDERED: METHOCARBAMOL 500 MG TABLET PO PRN (13:25)
[2020-06-06] MEDS ORDERED: MAGNESIUM CITRATE 300 ML BOTTLE PO PRN (13:25)
[2020-06-06] MEDS ORDERED: MAG HYDROX/AL HYDROX/SIMETH 30 ML UNIT-DOSE CUP PO PRN (13:25)
[2020-06-06] MEDS ORDERED: BISMUTH SUBSALICYLATE 524 MG/30 ML UD PO PRN (13:25)
[2020-06-06] MEDS ORDERED: ACETAMINOPHEN 325 MG TABLET (FP) PO PRN ×2 (13:25)
[2020-06-06] MEDS ORDERED: MAGNESIUM HYDROX 2400MG/30ML ORAL SUSPENSION 30 ML CUP PO PRN (13:25)
[2020-06-06] MEDS ORDERED: NICOTINE POLACRILEX 2 MG GUM BUC PRN (13:25)
[2020-06-06] MEDS ORDERED: MENTHOL/PHENOL 1 EACH UD MM PRN (13:25)
[2020-06-06] MEDS ORDERED: ONDANSETRON *ODT* 4 MG TABLET SL PRN (13:25)
[2020-06-06] MEDS ORDERED: IBUPROFEN 400 MG TABLET (FP) PO PRN (13:25)
[2020-06-06] MEDS: hydrOXYzine PAMOATE 25 MG CAPSULE (FP) PO SCH ×3 (15:11→22:23)
[2020-06-06] MEDS: NICOTINE 7 MG/24 HOURS TOPICAL PATCH TD SCH (15:18)
[2020-06-06] MEDS: LORazepam 2 MG TABLET PO SCH ×2 (17:36→22:22)
[2020-06-06] MEDS: MELATONIN 5 MG TABLETS PO SCH (22:23)
[2020-06-06] MEDS: THIAMINE HCL 100 MG TABLET (FP) PO SCH (22:24)
[2020-06-07] MEDS: hydrOXYzine PAMOATE 25 MG CAPSULE (FP) PO SCH ×5 (05:07→22:36)
[2020-06-07] MEDS: LORazepam 2 MG TABLET PO SCH ×4 (05:07→22:36)
[2020-06-07 09:54] LABS: POTASSIUM 4.4 mmol/L (3.5-5.1)
[2020-06-07 10:03] LABS: HEMATOCRIT 47.8 % (35.4-49); HEMOGLOBIN 16.3 GM/dL (11.7-16.9); MCH 31.3 pg (25.7-33.7); MEAN PLT VOLUME 9.4 fl (7.5-11.1); PLATELET COUNT 138 K/MM3 (134-434); WHITE BLOOD COUNT 4.5 K/mm3 (4.0-10.0)
[2020-06-07 10:04] LABS: ALBUMIN 3.3 g/dl (3.4-5.0); CALCIUM 9.4 mg/dL (8.5-10.1)
[2020-06-07 10:07] LABS: CREATININE 1.3 mg/dL (0.55-1.3)
[2020-06-07 10:08] LABS: BILIRUBIN,TOTAL 0.9 mg/dL (0.2-1); TOT PROT 7.7 g/dl (6.4-8.2)
[2020-06-07] MEDS: PRENATAL VITAMINS W/ FOLIC ACID TABLET (FP) PO SCH (10:17)
[2020-06-07] MEDS: ATORVASTATIN CA 10 MG TABLET (FP) PO SCH (10:17)
[2020-06-07] MEDS: NICOTINE 7 MG/24 HOURS TOPICAL PATCH TD SCH (10:18)
[2020-06-07] MEDS: MELATONIN 5 MG TABLETS PO SCH (22:36)
[2020-06-07] MEDS: THIAMINE HCL 100 MG TABLET (FP) PO SCH (22:36)
[2020-06-08] MEDS: LORazepam 1 MG TABLET PO SCH ×4 (05:39→22:21)
[2020-06-08] MEDS: hydrOXYzine PAMOATE 25 MG CAPSULE (FP) PO SCH ×5 (05:39→22:21)
[2020-06-08] MEDS: NICOTINE 7 MG/24 HOURS TOPICAL PATCH TD SCH (10:32)
[2020-06-08] MEDS: PRENATAL VITAMINS W/ FOLIC ACID TABLET (FP) PO SCH (10:33)
[2020-06-08] MEDS: ATORVASTATIN CA 10 MG TABLET (FP) PO SCH (10:33)
[2020-06-08] MEDS ORDERED: MELATONIN 5 MG TABLETS PO SCH (15:22)
[2020-06-08] MEDS: THIAMINE HCL 100 MG TABLET (FP) PO SCH (22:21)
[2020-06-09] MEDS ORDERED: LORazepam 0.5 MG TABLET PO PRN
[2020-06-09] MEDS: hydrOXYzine PAMOATE 25 MG CAPSULE (FP) PO SCH (05:34)
[2020-06-09] MEDS: LORazepam 0.5 MG TABLET PO SCH ×2 (05:34→10:05)
[2020-06-09 09:30] VITALS: BP 140/76; PULSE 59; TEMP 97.5
[2020-06-09] MEDS ORDERED: hydrOXYzine PAMOATE 25 MG CAPSULE (FP) PO PRN (09:31)
[2020-06-09] MEDS: PRENATAL VITAMINS W/ FOLIC ACID TABLET (FP) PO SCH (10:04)
[2020-06-09] MEDS: ATORVASTATIN CA 10 MG TABLET (FP) PO SCH (10:04)
[2020-06-09] MEDS: NICOTINE 7 MG/24 HOURS TOPICAL PATCH TD SCH (10:04)
[2020-06-10] MEDS ORDERED: LORazepam 0.5 MG TABLET PO ONE (05:00)
== END 2020-06-09 10:18 | disposition home or self-care (01) | DRG 897 ==
LOC: YASAS 11:18 → Y3N 12:51
PROVIDERS: ADMIT Allergy & Immunology; ATTEND Allergy & Immunology
PROC: HZ2ZZZZ Detoxification Services for Substance Abuse Treatment (ICD-10-PCS; principal; 2020-06-06)
DX: F10.230 Alcohol dependence with withdrawal, uncomplicated (principal); F14.20 Cocaine dependence, uncomplicated; F19.282 Other psychoactive substance dependence with psychoactive substance-induced sleep disorder; F11.10 Opioid abuse, uncomplicated; F12.20 Cannabis dependence, uncomplicated; F17.210 Nicotine dependence, cigarettes, uncomplicated; F19.24 Other psychoactive substance dependence with psychoactive substance-induced mood disorder; F31.9 Bipolar disorder, unspecified; F39 Unspecified mood [affective] disorder; Z21 Asymptomatic human immunodeficiency virus [HIV] infection status; E78.00 Pure hypercholesterolemia, unspecified; R79.89 Other specified abnormal findings of blood chemistry; Z86.73 Personal history of transient ischemic attack (TIA), and cerebral infarction without residual deficits; Z86.19 Personal history of other infectious and parasitic diseases
CPT/HCPCS: 36415; 71045-TC-FY; 80053; 84520; 85027; 86593; 86780; 93005; 93010; C9803; U0003